=== PATIENT | male | born 1960 | race Caucasian/White ===

== ENCOUNTER 2022-02-13 10:33 | Observation (INO) ==
[2022-02-13] MEDS ORDERED: ONDANSETRON INJ 2 MG/ML 2 ML VIAL IV STA (11:18)
[2022-02-13] MEDS ORDERED: MoRPHine SULFATE 4 MG/ML 1 ML CARP\\VIAL IV STA (11:18)
--- NOTE | 2022-02-13 11:20 | Emergency Department Note ---
Impression & Plan Bradycardia ADMIT ED Provider Note HPI: The patient is a 61-year-old gentleman with history of schizoaffective disorder, presents the emergency department [facility] over concern for chest discomfort. Patient tells me he has now had chest discomfort for about the past 3 days. States it is substernal in nature. Patient was complaining of the symptoms earlier today and EMS was contacted to transport the patient to the ED. He was noted to be bradycardic in the 40s and was given a dose of atropine in the field despite his blood pressure being stable. On my initial assessment the patient is in no acute distress, heart rate is 55, patient is hemodynamically stable otherwise and saturating well on room air, denies any shortness of breath, states he still does have some mild chest discomfort. 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 He is noted to be bradycardic in the field and was given a dose of atropine. Blood pressure is remained stable throughout his stay here in the ED. Patient states he does have some mild chest discomfort therefore was given morphine here in the ED, high-sensitivity troponin levels within normal limits, patient's EKG shows sinus bradycardia with a rate of 46, does not appear to show any evidence of high degree heart block. Patient has remained persistently bradycardic here in the ED mostly in the 40s, he denies any shortness of breath and is saturating well on room air, he is otherwise in no acute distress despite this bradycardia, denies any presyncopal events. Patient is a relatively difficult historian, has a history of schizoaffective disorder, he does tell me that he does not have any history of ischemic heart disease. He appears in no acute distress here in the ED but given his persistent bradycardia without known source (patient denies being on any beta- blockers) I do think it would be prudent to admit the patient for cardiology consultation and trending of troponins. At this time he is in no acute distress and EKG does not show high degree heart block per my interpretation. Patient is in agreement for admission, case was discussed with the on-call hospitalist for [facility], Dr. Rooney, and patient was admitted in stable condition for further care. Diagnosis: 1. Chest pain, acute 2. Sinus Bradycardia Disposition: Admission Toy Price DO Emergency Medicine Past Med/Surg History Medical History (Updated 09/17/21 @ 00:06 by Moses Yuen) COVID-19 Hypothyroid Psychiatric disorder Social History (Updated 09/06/21 @ 10:39 by Vicky Pritchett MD) Smoking Status: Former smoker Tobacco Type: Cigarettes Current Living Situation Comment: Long-term patient at the [facility] Feels Safe at Home: Yes Allergies Allergies Allergy/AdvReac Type Severity Reaction Status Date / Time adhesive tape Allergy Unknown Unverified 09/02/21 15:40 bee venom protein (honey bee) Allergy Unknown Unverified 09/02/21 15:40 chlorpromazine Allergy Unknown Unverified 09/02/21 15:40 [From Thorazine] latex Allergy Unknown Unverified 09/02/21 15:40 propranolol [From Inderal LA] Allergy Unknown Unverified 09/02/21 15:40 Home Meds Home Medications Medication Instructions Recorded Confirmed acetaminophen 325 mg tablet 650 mg PO Q4H PRN 09/02/21 09/02/21 aluminum-mag hydroxide-simethicone 30 ml PO QID PRN 09/02/21 09/02/21 200 mg-200 mg-20 mg/5 mL oral susp ascorbic acid (vitamin C) 1,000 mg 1 g PO DAILY 09/02/21 09/02/21 tablet aspirin 81 mg chewable tablet 81 mg PO DAILY 09/02/21 09/02/21 atorvastatin 10 mg tablet 10 mg PO HS 09/02/21 09/02/21 benzocaine 15 mg-menthol 3.6 mg 2 ambrocio MUCOUS MEMBRANE Q2H PRN 09/02/21 09/02/21 lozenges bisacodyl 5 mg tablet,delayed 10 mg PO DAILY 09/02/21 09/02/21 release cholecalciferol (vitamin D3) 25 25 mcg PO DAILY 09/02/21 09/02/21 mcg (1,000 unit) tablet clonazepam 0.5 mg tablet 0.5 mg PO TID PRN 09/02/21 09/02/21 clonidine HCl 0.1 mg tablet 0.1 mg PO BID 09/02/21 09/02/21 clozapine 100 mg tablet 100 mg PO QAM 09/02/21 09/02/21 clozapine 100 mg tablet 200 mg PO HS 09/02/21 09/02/21 divalproex 500 mg tablet,delayed 1,500 mg PO HS 09/02/21 09/02/21 release docusate sodium 100 mg capsule 200 mg PO DAILY 09/02/21 09/02/21 epinephrine 0.3 mg/0.3 mL 0.3 mg IM UD PRN 09/02/21 09/02/21 injection, auto-injector (EpiPen) famotidine 20 mg tablet 20 mg PO BID PRN 09/02/21 09/02/21 fluticasone propionate 50 1 spray INTRANASAL BID 09/02/21 09/02/21 mcg/actuation nasal spray,suspension guaifenesin 600 mg tablet, 600 mg PO BID 09/02/21 09/02/21 extended release 12 hr (Mucinex) levothyroxine 100 mcg tablet 100 mcg PO DAILY 09/02/21 09/02/21 levothyroxine 25 mcg tablet 25 mcg PO DAILY 09/02/21 09/02/21 loratadine 10 mg tablet 10 mg PO DAILY 09/02/21 09/02/21 multivitamin 1 tab PO DAILY 09/02/21 09/02/21 omega-3 fatty acids 1,000 mg 1,000 mg PO BID 09/02/21 09/02/21 capsule pantoprazole 40 mg tablet,delayed 40 mg PO DAILY 09/02/21 09/02/21 release phenylephrine 0.25 %-pramoxine 1 1 applic [place] TID PRN 09/02/21 09/02/21 %-glycerin-wh.petrolatum rectal cream (Hemorrhoidal Cream) polyethylene glycol 3350 17 17 g PO 3XWK 09/02/21 09/02/21 gram/dose oral powder pseudoephedrine HCl 60 mg tablet 60 mg PO BID 09/02/21 09/02/21 trazodone 150 mg tablet 150 mg PO HS 09/02/21 09/02/21 Results & Data (ED) Vital Signs Vital Signs - 24 hr 02/13/22 10:40 02/13/22 11:27 02/13/22 12:30 Temperature 36.6 C Temperature Source Oral Pulse Rate 46 L 43 L Pulse Rate [Apical] 50 L Pulse Rate from SpO2 Sensor 40 L Respiratory Rate 16 16 18 Respiratory Effort / Characteristics Non-Labored Spontaneous Non-Labored Spontaneous Respiratory Depth Normal Normal Respiratory Pattern Regular Blood Pressure 133/74 112/66 Blood Pressure [Right Arm] 129/71 Blood Pressure Mean 93 81 Blood Pressure Mean [Right Arm] 90 Blood Pressure Position Sitting Blood Pressure Position [Right Arm] Lying Pulse Oximetry 98 98 90 Oxygen Delivery Method Room Air Room Air Sepsis Recent Fever Within 48 Hours No Sepsis New/Unexplained Change in Mental Status N/A Sepsis Action Taken by Nursing No Action Required 02/13/22 13:00 02/13/22 13:31 02/13/22 13:59 Temperature Temperature Source Pulse Rate 50 L Pulse Rate [Apical] 45 L 46 L Pulse Rate from SpO2 Sensor 48 L Respiratory Rate 12 18 16 Respiratory Effort / Characteristics Non-Labored Respiratory Depth Normal Normal Respiratory Pattern Regular Blood Pressure 100/62 Blood Pressure [Right Arm] 100/62 105/60 Blood Pressure Mean 74 Blood Pressure Mean [Right Arm] 74 75 Blood Pressure Position Blood Pressure Position [Right Arm] Lying Pulse Oximetry 92 94 98 Oxygen Delivery Method Room Air Room Air Sepsis Recent Fever Within 48 Hours Sepsis New/Unexplained Change in Mental Status Sepsis Action Taken by Nursing Laboratory Data Result diagrams: 02/13/22 11:44 02/13/22 11:44 Lab Results 02/13/22 02/13/22 Range/Units 11:44 11:44 WBC 6.65 (4.8-10.8) K/uL RBC 4.48 L (4.7-6.1) M/uL Hgb 12.8 L (14.0-18.0) g/dL Hct 38.4 L (42-52) % MCV 85.7 (80-100) fL MCH 28.6 (25-34) pg MCHC 33.3 (32-36) g/dL RDW Std Deviation 40.7 (36.4-46.3) fL RDW Coeff of [place] 13.0 (11.5-14.5) % Plt Count 199 (130-400) K/uL MPV 11.1 H (7.4-10.4) fL Immature Gran % (Auto) 0.5 % Neut % (Auto) 65.1 % Lymph % (Auto) 27.4 % [place] % (Auto) 5.6 % Eos % (Auto) 1.1 % Baso % (Auto) 0.3 % Neut # (Auto) 4.34 (1.4-6.5) K/uL Lymph # (Auto) 1.82 (1.2-3.4) K/uL [place]uming # (Auto) 0.37 (0.11-0.59) K/uL Eos # (Auto) 0.07 (0-0.5) K/uL Baso # (Auto) 0.02 (0-0.2) K/uL Immature Gran # (Auto) 0.03 H (0.00-0.02) K/uL Sodium 140 (136-145) mmol/L Potassium 3.9 (3.5-5.1) mmol/L Chloride 108 H (98-107) mmol/L Carbon Dioxide 25 (21-32) mmol/L Anion Gap 7 (3-11) BUN 17 (6-23) mg/dl Creatinine 0.89 (0.6-1.4) mg/dl Est Cr Clr Drug Dosing 109.5 ml/min Est GFR ( Amer) 105.5 ml/min Est GFR (Non-Af Amer) 91.0 ml/min BUN/Creatinine Ratio 19.1 (10-20) Glucose 114 H (70-99(Fasting)) mg/dl Calcium 9.4 (8.5-10.1) mg/dl Total Bilirubin 0.5 (0.2-1.0) mg/dl AST 23 (13-39) U/L ALT 32 (7-52) U/L Alkaline Phosphatase 67 (34-104) U/L Troponin I High Sens 9.2 (0-20) pg/ml Total Protein 6.6 (6.0-8.3) gm/dl Albumin 3.9 (3.4-5.0) gm/dl Globulin 2.7 (2.5-4.0) gm/dl Albumin/Globulin Ratio 1.4 (0.9-2) Lipase 44 (11-82) U/L Administered Medications Discontinued Medications Morphine Sulfate (Morphine Sulfate 4 Mg/Ml 1 Ml Carp\Vial) 4 mg IV NOW STA Stop: 02/13/22 11:19 Last Admin: 02/13/22 11:34 Dose: 4 mg Documented by: [id number] Ondansetron HCl (Ondansetron Inj 2 Mg/Ml 2 Ml Vial) 4 mg IV NOW STA Stop: 02/13/22 11:19 Last Admin: 02/13/22 11:35 Dose: 4 mg Documented by: [id number] Imaging Data Radiologist's Impression: Chest X-Ray 02/13/22 11:14 XR chest 1V portable CLINICAL HISTORY: Atypical chest pain. COMPARISON STUDY: Chest radiograph September 02, 2021. FINDINGS: Lung volumes are normal. Lungs are clear. There is no pneumothorax or pleural effusion. Cardiac size is normal. Mediastinal contours are normal. There is no evidence for pulmonary edema. Old right fifth rib fracture is incidentally noted. IMPRESSION: No acute cardiopulmonary findings. ACT 112: Negative or not required by law. Electronically signed by: Travis Krause M.D. 02/13/2022 11:41 AM Discharge Plan Visit Data Chief Complaint: Cardiac Assessment Stated Complaint: CHEST PAIN ED Provider: Toy Price Discharge Problem: Bradycardia Forms Stand Alone Forms: [facility] Prescriptions Prescriptions: No Action multivitamin Tablet 1 tab PO DAILY RF: 0 ascorbic acid (vitamin C) 1,000 mg Tablet 1 g PO DAILY RF: 0 clonidine HCl 0.1 mg Tablet 0.1 mg PO BID RF: 0 acetaminophen 325 mg Tablet 650 mg PO Q4H PRN (Reason: Pain) RF: 0 omega-3 fatty acids [Fish Oil Concentrate] 1,000 mg Capsule 1,000 mg PO BID RF: 0 atorvastatin 10 mg Tablet 10 mg PO HS RF: 0 clozapine 100 mg Tablet 200 mg PO HS RF: 0 clozapine 100 mg Tablet 100 mg PO QAM RF: 0 clonazepam 0.5 mg Tablet 0.5 mg PO TID PRN (Reason: Anxiety) RF: 0 divalproex 500 mg Tablet,Delayed Release (Dr/Ec) 1,500 mg PO HS RF: 0 levothyroxine 25 mcg Tablet 25 mcg PO DAILY RF: 0 levothyroxine 100 mcg Tablet 100 mcg PO DAILY RF: 0 famotidine 20 mg Tablet 20 mg PO BID PRN (Reason: Gi Upset) RF: 0 pantoprazole 40 mg Tablet,Delayed Release (Dr/Ec) 40 mg PO DAILY RF: 0 trazodone 150 mg Tablet 150 mg PO HS RF: 0 docusate sodium 100 mg Capsule 200 mg PO DAILY RF: 0 aspirin 81 mg Tablet,Chewable 81 mg PO DAILY RF: 0 bisacodyl 5 mg Tablet,Delayed Release (Dr/Ec) 10 mg PO DAILY RF: 0 alum-mag hydroxide-simeth [Antacid Plus] 200-200-20 mg/5 mL Suspension 30 ml PO QID PRN (Reason: Gastric Reflux) RF: 0 epinephrine [EpiPen] 0.3 mg/0.3 mL Auto-Injector 0.3 mg IM UD PRN (Reason: Allergic Reaction) RF: 0 polyethylene glycol 3350 17 gram/dose Powder 17 g PO 3XWK RF: 0 fluticasone propionate 50 mcg/actuation [place],Suspension 1 spray INTRANASAL BID RF: 0 pseudoephedrine HCl [Sudafed] 60 mg Tablet 60 mg PO BID RF: 0 loratadine 10 mg Tablet 10 mg PO DAILY RF: 0 Hemorrhoidal Cream 0.25-1 % Cream 1 applic [place] TID PRN (Reason: Hemorrhoids) RF: 0 cholecalciferol (vitamin D3) 25 mcg (1,000 unit) Tablet 25 mcg PO DAILY RF: 0 benzocaine-menthol 15-3.6 mg Lozenge 2 ambrocio mucous membrane Q2H PRN (Reason: Sore Throat) RF: 0 guaifenesin [Mucinex] 600 mg Tablet Extended Release 12hr 600 mg PO BID RF: 0 Referrals Referrals: [facility] [Primary Care Provider] -
--- NOTE | 2022-02-13 11:42 | XRay Report ---
XR chest 1V portable CLINICAL HISTORY: Atypical chest pain. COMPARISON STUDY: Chest radiograph September 02, 2021. FINDINGS: Lung volumes are normal. Lungs are clear. There is no pneumothorax or pleural effusion. Car diac size is normal. Mediastinal contours are normal. There is no evidence for pulmonary edema. Old r ight fifth rib fracture is incidentally noted. IMPRESSION: No acute cardiopulmonary findings. ACT 112: Negative or not required by law. Electronically signed by: Travis Krause M.D. 02/13/2022 11:41 AM
[2022-02-13 12:03] LABS: Basophils # (auto) 0.02 K/uL (0-0.2); Basophils % (auto) 0.3 %; Eosinophils # (auto) 0.07 K/uL (0-0.5); Eosinophils % (auto) 1.1 %; Hematocrit (blood only) 38.4 % (42-52); Hemoglobin 12.8 g/dL (14.0-18.0); Immature Granulocytes # (auto) 0.03 K/uL (0.00-0.02); Immature Granulocytes % (auto) 0.5 %; Lymphocytes # (auto) 1.82 K/uL (1.2-3.4); Lymphocytes % (auto) 27.4 %; Mean Corpuscular Hemoglobin 28.6 pg (25-34); Mean Corpuscular Hgb Conc 33.3 g/dL (32-36); Mean Corpuscular Volume 85.7 fL (80-100); Mean Platelet Volume 11.1 fL (7.4-10.4); Monocytes # (auto) 0.37 K/uL (0.11-0.59); Monocytes % (auto) 5.6 %; Neutrophils # (auto) 4.34 K/uL (1.4-6.5); Neutrophils % (auto) 65.1 %; Platelet Count 199 K/uL (130-400); RDW Standard Deviation 40.7 fL (36.4-46.3); Red Blood Count 4.48 M/uL (4.7-6.1); White Blood Count 6.65 K/uL (4.8-10.8)
[2022-02-13 12:27] LABS: Albumin Globulin Ratio 1.4 (0.9-2); Albumin Level 3.9 gm/dl (3.4-5.0); BUN Creatinine Ratio 19.1 (10-20); Bilirubin,Total 0.5 mg/dl (0.2-1.0); Calcium 9.4 mg/dl (8.5-10.1); Creatinine Clr Calc Pharmacy 109.5 ml/min; Est GFR (African American) 105.5 ml/min; Globulin 2.7 gm/dl (2.5-4.0); Potassium 3.9 mmol/L (3.5-5.1); Total Protein 6.6 gm/dl (6.0-8.3); Troponin I High Sensitivity 9.2 pg/ml (0-20)
--- NOTE | 2022-02-13 13:37 | History & Physical Report ---
Date of Service February 13, 2022 Assessment & Plan (1) Bradycardia: Plan: - Patient has not been here frequently so do not have ample past medical records, but appears new for him given vital signs on last admission in August. Patient also states he has never been told he has a low heart rate. He denies being on any beta-blockers or antiarrhythmics. Per my research, none of his psychiatric medications are known to cause bradycardia. Potassium within normal limits at 3.9. Not hypoxic. History of ischemic heart disease, no evidence for acute MT. - Will check TSH and Lyme. - Atropine ordered as needed for sustained HR < 40 - Consult cardiology for further recommendations. (2) Chest pain: Plan: - Initial hsTrop 9.2, EKG shows sinus bradycardia and chronic LBBB without any specific ST segment or T wave changes, which is reassuring given the patient's history of chest pain going on for 3 days now. We will trend troponin while here and admit to telemetry unit. - Currently chest pain-free after receiving morphine and Zofran. - Consult cardiology as above. - ? whether this could be heartburn as he did mention it goes from stomach up to throat. As stated, patient is a difficult historian given his speech difficulties, so it is difficult to obtain much detail about the symptoms. (3) Psychiatric disorder: Plan: - Chronic stable, patient stating repeatedly this is the best he's felt "in years". - Continue on scheduled medications: - Keppra 250mg 0900 and 1300, 500mg at HS - Risperidone 2mg HS - Venlafaxine ER 150mg AM, 75 mg at 1300 - Trazodone 150 mg HS. - Klonopin 0.5 mg TID as needed for anxiety. (4) Hypothyroid: Plan: - Continue levothyroxine 125 mcg daily. - Checking TSH with reflex T4 given bradycardia. (5) Hyperlipidemia: Plan: - Continue atorvastatin 10 mg daily. (6) GERD (gastroesophageal reflux disease): Plan: - Continue Protonix 40 mg daily. - Has Pepcid ordered 20 mg BID as needed--will order this schedule. - Continue antacid prn. Plan: - Admit to PCU. - SCDs for DVT PPx - Full code. History of Present Illness Chief Complaint: chest pain for 3 days Primary Care Provider: Joya Osman Nando Restrepo is a 61 y/o male with PMH significant for schizoaffective disorder, hyperlipidemia, GERD, and hypothyroidism who presents today from inpatient psychiatric facility for chest pain. At baseline, patient has some difficulty with speech dysarthria/dystonia so history is collected from patient, as well as ED provider and facility notes. Patient first experienced the chest pain on Friday, 02/10 around 9 AM while he was sitting in one of his group therapies. Chest pain has been on and off over the past 3 days since then feels like a pressure on his chest but does not radiate elsewhere, although he does mention that one time it seemed to go from his stomach to his throat. He states at its worst this morning it was an 8/10, but now is down to a 3-4/10 after receiving Zofran and morphine. He has not experienced chest pain like this before. The pain has come on at rest and activity, patient woke up with it this morning. He does not believe it is any better or worse with positions, does not begin immediately after meal. He thinks he may have been nauseous with it few times and also reports feeling lightheaded at points, but cannot really elaborate much further. He does not have a history of heart disease. In ED, he is bradycardic with HR 40-50s, borderline soft BPs. Labs largely unremarkable, initial hs Trop 9.2. Hgb 12.8, glucose 114. CXR unremarkable. Allergies Allergy/AdvReac Type Severity Reaction Status Date / Time oxazepam Allergy Unknown Unknown Unverified 02/13/22 14:35 adhesive tape Allergy Unknown Unverified 09/02/21 15:40 bee venom protein (honey bee) Allergy Unknown Unverified 02/13/22 14:35 chlorpromazine Allergy Unknown Unverified 02/13/22 14:35 [From Thorazine] latex Allergy Unknown Unverified 02/13/22 14:35 propranolol [From Inderal LA] Allergy Unknown Unverified 02/13/22 14:35 Home Medications Medication Instructions Recorded Confirmed Type acetaminophen 325 mg tablet 650 mg PO Q4H PRN 09/02/21 02/13/22 History aluminum-mag hydroxide-simethicone 30 ml PO QID PRN 09/02/21 02/13/22 History 200 mg-200 mg-20 mg/5 mL oral susp ascorbic acid (vitamin C) 1,000 mg 1 g PO QAM 09/02/21 02/13/22 History tablet aspirin 81 mg chewable tablet 81 mg PO QAM 09/02/21 02/13/22 History atorvastatin 10 mg tablet 10 mg PO HS 09/02/21 02/13/22 History benzocaine 15 mg-menthol 3.6 mg 2 ambrocio MUCOUS MEMBRANE Q2H PRN 09/02/21 02/13/22 History lozenges cholecalciferol (vitamin D3) 25 25 mcg PO QAM 09/02/21 02/13/22 History mcg (1,000 unit) tablet clonazepam 0.5 mg tablet 0.5 mg PO TID PRN 09/02/21 02/13/22 History docusate sodium 100 mg capsule 200 mg PO BID 09/02/21 02/13/22 History epinephrine 0.3 mg/0.3 mL 0.3 mg IM UD PRN 09/02/21 02/13/22 History injection, auto-injector (EpiPen) fluticasone propionate 50 1 spray INTRANASAL BID 09/02/21 02/13/22 History mcg/actuation nasal spray,suspension guaifenesin 600 mg tablet, 600 mg PO BID 09/02/21 02/13/22 History extended release 12 hr (Mucinex) levothyroxine 100 mcg tablet 100 mcg PO DAILY@0700 09/02/21 02/13/22 History levothyroxine 25 mcg tablet 25 mcg PO DAILY@0700 09/02/21 02/13/22 History multivitamin 1 tab PO QAM 09/02/21 02/13/22 History omega-3 fatty acids 1,000 mg 1,000 mg PO BID 09/02/21 02/13/22 History capsule pantoprazole 40 mg tablet,delayed 40 mg PO QAM 09/02/21 02/13/22 History release phenylephrine 0.25 %-pramoxine 1 1 applic [place] TID PRN 09/02/21 02/13/22 History %-glycerin-wh.petrolatum rectal cream (Hemorrhoidal Cream) polyethylene glycol 3350 17 17 g PO 3XWK 09/02/21 02/13/22 History gram/dose oral powder trazodone 150 mg tablet 150 mg PO HS 09/02/21 02/13/22 History levetiracetam 250 mg tablet 250 mg PO BID 02/13/22 02/13/22 History levetiracetam 500 mg tablet 500 mg PO HS 02/13/22 02/13/22 History montelukast 10 mg tablet 10 mg PO QAM 02/13/22 02/13/22 History (Singulair) risperidone 2 mg tablet 2 mg PO HS 02/13/22 02/13/22 History sennosides 8.6 mg tablet (senna) 8.6 mg PO HS 02/13/22 02/13/22 History venlafaxine 150 mg 150 mg PO QAM 02/13/22 02/13/22 History capsule,extended release 24 hr venlafaxine 75 mg capsule,extended 75 mg PO DAILY@1300 02/13/22 02/13/22 History release 24 hr Past Med/Surg History Medical History (Updated 02/13/22 @ 15:03 by Clarissa Will PA-C) COVID-19 GERD (gastroesophageal reflux disease) Hyperlipidemia Hypothyroid Psychiatric disorder Social History Smoking Status: Former smoker Tobacco Type: Cigarettes Current Living Situation Comment: Long-term patient at the [facility] Feels Safe at Home: Yes Review of Systems Review of Systems: Other (Patient has baseline speech dysarthria/dystonia) Physical Exam Physical Exam: General: awake, alert, no apparent distress Head: Normocephalic, atraumatic ENT: PERRL, EOMI, no pharyngeal exudate, mucous membranes moist Chest: Clear to auscultation, on room air, no adventitious breath sounds Cardiac: braycardiac, regular rhythm, no murmur, no JVD, normal peripheral pulses, good capillary refill Abdominal: NABS x 4 quadrants, soft, nontender to palpation, no rebound, guarding or tenderness Extremities: Normal inspection, no peripheral edema or erythema, calfs nontender to palpation Psych: Normal mood and affect Neuro: AAO x 3, strength intact bilaterally and rated 5/5, no motor deficits, speech is clear, no peripheral sensory deficits Skin: no rash or erythema Results & Data Results & Data ([facility]) Vital Signs (Past 12 Hours) Vital Signs Temp Pulse Pulse Resp BP BP Pulse Ox 02/13/22 13:31 45 L 18 100/62 94 02/13/22 13:00 50 L 12 100/62 92 02/13/22 12:30 43 L 18 112/66 90 02/13/22 11:27 50 L 16 129/71 98 02/13/22 10:40 36.6 C 46 L 16 133/74 98 Laboratory Results Abnormal lab results 02/13/22 02/13/22 Range/Units 11:44 11:44 RBC 4.48 L (4.7-6.1) M/uL Hgb 12.8 L (14.0-18.0) g/dL Hct 38.4 L (42-52) % MPV 11.1 H (7.4-10.4) fL Immature Gran # (Auto) 0.03 H (0.00-0.02) K/uL Chloride 108 H (98-107) mmol/L Glucose 114 H (70-99(Fasting)) mg/dl Diagnostic Findings Chest X-Ray 02/13/22 11:14 XR chest 1V portable CLINICAL HISTORY: Atypical chest pain. COMPARISON STUDY: Chest radiograph September 02, 2021. FINDINGS: Lung volumes are normal. Lungs are clear. There is no pneumothorax or pleural effusion. Cardiac size is normal. Mediastinal contours are normal. There is no evidence for pulmonary edema. Old right fifth rib fracture is incidentally noted. IMPRESSION: No acute cardiopulmonary findings. ACT 112: Negative or not required by law. Electronically signed by: Travis Krause M.D. 02/13/2022 11:41 AM ECG Additional Comments: Sinus bradycardia Left bundle branch block Abnormal ECG When compared with ECG of 02-SEP-2021 14:38, Premature supraventricular complexes are no longer Present Vent. rate has decreased BY 28 BPM T wave amplitude has decreased in Anterior leads T wave inversion no longer evident in Lateral leads QT has shortened. Code Status & VTE Plan Code Status Full Code. Supervising Physician Co-Signing Physician Notes Patient seen and examined, chart reviewed, case discussed with Clarissa Cuellar and I agree with the assessment and plan as above except as otherwise noted above. Patient is a 61-year-old male with a past medical history of hyperlipidemia, hypothyroidism, COVID, and schitzoaffective disorder stable on venlafaxine/risperidone/trazodone/Keppra who presents with suspicion for symptomatic bradycardia. At bedside assessment lungs are clear, patient is in no acute distress. Blood pressure is normal. Remains bradycardic in the 40s. No change in chest discomfort, reports some feeling of reflux which improved on arrival to ER. QTc 406.QRS 166, left bundle, P wave does proceed complex/not consistent with ventricular escape. Patient is not on beta-blockers prior to admission. Lyme serology is negative, TSH is within normal limits. Did receive atropine in route to hospital for sustained heart rate with symptoms below 40. Asymptomatic with heart rate improved in the 40s on admission. Patient did have some chest discomfort which resolved by time of bedside assessment. High-sensitivity troponinAnd repeat both less than 20, no ST changes on EKG. Given 3 days of chest pain unlikely that this represents ACS. Cardiology is consulted for pacer evaluation for symptomatic bradycardia. PG Care Time/CCT Total # of Minutes Spent Total Time Spent with Patient: Total time spent is greater than 50% in coordination of care (as documented) at patient's floor/unit and/or counseling patient: Coding Level of Care Code 27556 Initial Inpt Care Lvl 2 Diagnoses Psychiatric disorder F99 Hypothyroid E03.9 Chest pain R07.9 Bradycardia R00.1 Hyperlipidemia E78.5 GERD (gastroesophageal reflux disease) K21.9
[2022-02-13 15:54] LABS: Lyme Ab IgG w/WB Rflx Negative (Negative); Lyme Ab IgM w/WB Rflx Negative (Negative)
[2022-02-13] MEDS ORDERED: ONDANSETRON INJ 2 MG/ML 2 ML VIAL IV PRN (16:55)
[2022-02-13] MEDS ORDERED: COUGH DROP (SUGAR FREE) LOZ 24 LOZ/1 BOX BUCCAL PRN (16:55)
[2022-02-13] MEDS ORDERED: ATROPINE SULFATE 0.1 MG/ML SYRINGE INJ PRN (16:55)
[2022-02-13] MEDS ORDERED: ALUMINUM/MAGNESIUM SUSP 30 ML UDC PO PRN (19:50)
[2022-02-13] MEDS ORDERED: POLYETHYLENE (MIRALAX) 17 GM PACK PO SCH (20:00)
[2022-02-13] MEDS: FAMOTIDINE 20 MG TAB PO SCH (21:12)
[2022-02-13] MEDS: traZODone HCL 50 MG TAB PO SCH (21:12)
[2022-02-13] MEDS: levETIRAcetam 500 MG TAB PO SCH (21:12)
[2022-02-13] MEDS: risperiDONE 2 MG TABLET PO SCH (21:12)
[2022-02-13] MEDS: guaiFENesin 600 MG TABCR PO SCH (21:12)
[2022-02-13] MEDS: ATORVASTATIN 10 MG TAB PO SCH (21:12)
[2022-02-14 06:15] LABS: Basophils # (auto) 0.01 K/uL (0-0.2); Basophils % (auto) 0.1 %; Eosinophils # (auto) 0.09 K/uL (0-0.5); Eosinophils % (auto) 1.2 %; Hemoglobin 13.5 g/dL (14.0-18.0); Immature Granulocytes # (auto) 0.03 K/uL (0.00-0.02); Immature Granulocytes % (auto) 0.4 %; Lymphocytes # (auto) 1.38 K/uL (1.2-3.4); Mean Corpuscular Hemoglobin 29.7 pg (25-34); Mean Corpuscular Hgb Conc 33.8 g/dL (32-36); Mean Corpuscular Volume 87.9 fL (80-100); Mean Platelet Volume 11.1 fL (7.4-10.4); Monocytes # (auto) 0.66 K/uL (0.11-0.59); Monocytes % (auto) 8.6 %; Neutrophils # (auto) 5.48 K/uL (1.4-6.5); Neutrophils % (auto) 71.7 %; Platelet Count 189 K/uL (130-400); RDW Coefficient of Variation 13.2 % (11.5-14.5); RDW Standard Deviation 42.4 fL (36.4-46.3); Red Blood Count 4.55 M/uL (4.7-6.1); White Blood Count 7.65 K/uL (4.8-10.8)
[2022-02-14 06:33] LABS: Creatinine Clr Calc Pharmacy 95.2 ml/min; Est GFR (African American) 92.4 ml/min; Est GFR (Non-African American) 79.7 ml/min; Potassium 4.2 mmol/L (3.5-5.1)
[2022-02-14] MEDS ORDERED: LEVOTHYROXINE SODIUM 100 MCG TABLET PO SCH (07:00)
[2022-02-14] MEDS ORDERED: LEVOTHYROXINE SODIUM 25 MCG TABLET PO SCH (07:00)
[2022-02-14] MEDS: levETIRAcetam 250 MG TAB PO SCH ×2 (08:09→14:40)
[2022-02-14] MEDS: CHOLECALCIFEROL 1,000 UNITS 25 MCG TAB PO SCH (08:09)
[2022-02-14] MEDS: DOCUSATE SODIUM 100 MG CAP PO SCH (08:09)
[2022-02-14] MEDS: PANTOprazole 40 MG TAB PO SCH (08:09)
[2022-02-14] MEDS: guaiFENesin 600 MG TABCR PO SCH ×2 (08:10→20:25)
[2022-02-14] MEDS: VENLAFAXINE HCL XR 150 MG CAPXR PO SCH (08:10)
[2022-02-14] MEDS: ASCORBIC ACID 500 MG TAB PO SCH (08:10)
[2022-02-14] MEDS: FAMOTIDINE 20 MG TAB PO SCH ×2 (08:10→20:25)
[2022-02-14] MEDS: ASPIRIN 81 MG ECTAB PO SCH (08:10)
[2022-02-14] MEDS: ACETAMINOPHEN 325 MG TAB PO PRN ×2 (08:16→22:03)
--- NOTE | 2022-02-14 12:40 | Hospitalist Progress Note ---
Date of Service February 14, 2022 Assessment & Plan (1) Bradycardia: Plan: No bradycardia appreciated patient's last visit in August, per patient no history of bradycardia No history of beta-melia or antiarrhythmic treatment Troponin negative, no acute ST segment changes TSH normal, Lyme serology negative Initially patient had received atropine for heart rate sustained under 40 with lightheadedness and dizziness in route to ER, patient is able to walk today with appropriate rise in heart rate to the 70s. No heart block overnight, no pauses greater than 2.5 seconds overnight. Patient does endorse some lightheadedness/dizziness when standing Orthostatic vitals: Blood pressure lying 126/70; sitting 134/72; standing 119/64 Pulse lying 51, sitting 61, standing 60 Does not show reduction of 20 systolic/10 diastolic between positions performed at 1-2 minute interval Echo with normal LV SF 60-65%, no regional wall motion abnormalities. Mild mitral regurg moderate concentric LVH Pending callback from the [facility] for med review, left message with nursing staff By report and discussed with family some medication changes have been made recently, but they are not sure which these were.? Lightheadedness and dizziness 2/2 medications/sedation. (2) Chest pain: Plan: - Initial hsTrop 9.2, EKG shows sinus bradycardia and chronic LBBB without any specific ST segment or T wave changes, patient did have 3 days of symptoms -Pain-free with morphine/Zofran after admission, some reports of chest pain in the morning which was reproducible on palpation but which was improved/resolved at rest at time of bedside assessment -Noncardiac, suspect MSK Repeat at bedtime troponin 8.3. Not consistent with ACS on mom's happy birthday message was yellow happy birthday (even though I did all the work (3) Psychiatric disorder: Plan: - Schizoaffective disorder per patient, patient reports he is doing well and is stable on his medications below - Keppra 250mg 0900 and 1300, 500mg at HS - Risperidone 2mg HS - Venlafaxine ER 150mg AM, 75 mg at 1300 - Trazodone 150 mg HS. - Klonopin 0.5 mg TID as needed for anxiety. Patient does report he was previously switched from clozapine.? Agranulocytosis versus dystonic reaction, no dystonia appreciated on exam. Per sister has had multiple medication changes but recently doing well, thinks clozapine change was for feeling 'snappy' but 'so much psychiatric stuff it was hard to tell but he is doing really well on his current medications after being in and out of places for most of my life.' (4) Hypothyroid: Plan: - Continue levothyroxine 125 mcg daily. -TSH normal (5) Hyperlipidemia: Plan: - Continue atorvastatin 10 mg daily. (6) GERD (gastroesophageal reflux disease): Plan: - Continue Protonix 40 mg daily. - Pepcid 20 twice daily Plan: - Admit to PCU. - SCDs for DVT PPx - Full code. Admission and Anticipated Discharge Date Admission Date: February 13, 2022 Subjective Seen at the bedside this morning. He reports he did have a recurrence of chest pain which has improved by time of bedside assessment. Chest pain is in his mid sternum/left chest and is worsened on palpation. Denies shortness of breath, difficulty breathing, lightheadedness, dizziness, sweats this morning. Does endorse lightheadedness upon standing, has not ambulated at time of initial morning bedside visit. Later morning is ambulating with nursing staff, heart rate rises to 70s appropriately and patient tolerating well without lightheadedness. Troponin remains negative. Lyme negative. Review of Systems Review of Systems: All systems reviewed & are unremarkable except as noted in Subjective Physical Exam Physical Exam: General: A&Ox3. Not responding to internal stimuli. Answers questions appropriately, but trails off intermittently. Process linear to occasionally tangential. HEENT: Atraumatic, normocephalic. Vision and hearing grossly intact Pulm: CTAB A&P. -wheezes, -rales, -rhonchi. Symmetrical chest rise. No increase in work of breathing. No respiratory distress. Cardiac: Bradycardic, -mrg. Radial pulses intact and symmetrical. Abdominal: Nontender, nondistended, soft. BS present. Results & Data Results & Data ([facility]) Vital Signs (Past 12 Hours) Vital Signs Temp Pulse Resp BP BP Pulse Ox 02/14/22 10:55 36.4 C L 51 L 20 126/70 96 02/14/22 10:06 134/75 02/14/22 07:41 36.6 C 52 L 19 117/72 97 02/14/22 03:19 36.5 C 47 L 18 100/61 92 PG Care Time/CCT Total # of Minutes Spent Total Time Spent with Patient: Total time spent is greater than 50% in coordination of care (as documented) at patient's floor/unit and/or counseling patient: Coding Level of Care Code 41341 Subseq Hosp Care Lvl 2 Diagnoses Bradycardia R00.1 Chest pain R07.9 Psychiatric disorder F99 Hypothyroid E03.9 Hyperlipidemia E78.5 GERD (gastroesophageal reflux disease) K21.9
[2022-02-14] MEDS: VENLAFAXINE HCL XR 75 MG CAPXR PO SCH (14:40)
--- NOTE | 2022-02-14 16:42 | Cardiology Consultation ---
Date of Consultation February 14, 2022 Assessment & Plan (1) Atypical chest pain: (2) Bradycardia: (3) Dizziness: ASSESSMENT/PLAN: 1. Atypical chest pain: Recommend echo, which was ordered this morning and currently pending. Recommend trending troponin level until peak. Troponin has not been done since yesterday and will be ordered at this time. Given reproducible nature/tenderness of chest, symptoms do not appear to be ischemic thus far but awaiting further objective data such as troponin and echo. No urgent indication for catheterization at this time. 2. LBBB: Chronic. 3. Bradycardia: There was concern for symptomatic bradycardia. Asked nursing staff to assist him in walking in the hallway. Upon standing, his heart rate increased quickly to the 60s and then consistently in the 70s while walking, up to 75 bpm during his slow walk in the hallway. He did mention dizziness. Orthostatic vitals were requested. He appears to have appropriate chronotropic response to mild exertion. No indication for pacemaker at this time. Avoid medications that can lower heart rate. 4. Dizziness: Etiology uncertain. Consider medication as possible etiology. Check orthostatic vitals. Appears to have reasonable chronotropic response and therefore bradycardia does not appear to be the likely culprit given reproduction of symptoms despite heart rate improving by > 20 bpm with minimal exertion. 5. Disposition: Findings and patient care discussed with Dr. [facility], as well as nursing staff. Awaiting echo. I will be away from the hospital for the next several days. Please contact on-call spinneret cleaner for questions or concerns. Dr. Mccormick will be covering tomorrow. Thank you for allowing me to participate in the care of your patient. Please call for any other questions or concerns. Sincerely, Johnnie Perez M.D. History of Present Illness Reason for Consultation: "Symptomatic bradycardia Requesting Physician: Clarissa Will Attending Physician: Navdeep Iglesias MD History of Present Illness Mr. Restrpeo is a pleasant 61-year-old gentleman with a history significant for schizoaffective disorder, dyslipidemia, GERD, and hypothyroidism. He was brought to the emergency department for chest pain. He has difficulty with speech and obtaining a history is difficult. He describes left-sided chest discomfort that can last for 4-5 minutes. He noted chest discomfort 3-4 days ago at approximately 9:00 a.m. while seated. It has been intermittent since then without radiation. There is no other associated symptom such as shortness of breath or diaphoresis. He admits that during our conversation this morning, he had ongoing chest discomfort and had reported chest discomfort to nursing staff as well. He has had ECGs done during episodes of chest discomfort but has baseline left bundle branch block which was also noted on 09/02/2021 ECG. It is not clear if the chest discomfort is exacerbated by exertion, although much of what he discussed today in regards to chest discomfort was noted to be occurring at rest. He believed chest discomfort may be related to anxiety. Despite the chest discomfort being reported as intermittent, he had on presentation for quite some time and has had it at least most of the morning today. High sensitivity troponin remained negative yesterday times to however he has not had a repeat today. The other concern from a cardiology perspective was bradycardia. He was found to have heart rates in the 40s at his living facility and a blood pressure of 102/56. 911 was called. EMS reportedly administered atropine due to bradycardia. While here, he has remained in sinus rhythm with sinus bradycardia with heart rates in the 40s to 50s for the most part. While sitting in bed, he was asymptomatic in this regard. He does report lightheadedness or dizziness but it was difficult to know the circumstances given his speech difficulties. He denies bleeding. He walks daily at his living facility. Review of systems: As above and otherwise unobtainable/unremarkable. Family history: No known premature CAD. Father had diabetes. Social history: He quit smoking approximately 18 years ago. Has used drugs in the past but none currently. He no longer consumes alcohol. He has not been . No children. He lives at the [facility]. He was unaccompanied. Allergies Allergy/AdvReac Type Severity Reaction Status Date / Time oxazepam Allergy Unknown Unknown Unverified 02/13/22 14:35 adhesive tape Allergy Unknown Unverified 09/02/21 15:40 bee venom protein (honey bee) Allergy Unknown Unverified 02/13/22 14:35 chlorpromazine Allergy Unknown Unverified 02/13/22 14:35 [From Thorazine] latex Allergy Unknown Unverified 02/13/22 14:35 propranolol [From Inderal LA] Allergy Unknown Unverified 02/13/22 14:35 Home Medications Medication Instructions Recorded Confirmed Type acetaminophen 325 mg tablet 650 mg PO Q4H PRN 09/02/21 02/13/22 History aluminum-mag hydroxide-simethicone 30 ml PO QID PRN 09/02/21 02/13/22 History 200 mg-200 mg-20 mg/5 mL oral susp ascorbic acid (vitamin C) 1,000 mg 1 g PO QAM 09/02/21 02/13/22 History tablet aspirin 81 mg chewable tablet 81 mg PO QAM 09/02/21 02/13/22 History atorvastatin 10 mg tablet 10 mg PO HS 09/02/21 02/13/22 History benzocaine 15 mg-menthol 3.6 mg 2 marcelo MUCOUS MEMBRANE Q2H PRN 09/02/21 02/13/22 History lozenges cholecalciferol (vitamin D3) 25 25 mcg PO QAM 09/02/21 02/13/22 History mcg (1,000 unit) tablet clonazepam 0.5 mg tablet 0.5 mg PO TID PRN 09/02/21 02/13/22 History docusate sodium 100 mg capsule 200 mg PO BID 09/02/21 02/13/22 History epinephrine 0.3 mg/0.3 mL 0.3 mg IM UD PRN 09/02/21 02/13/22 History injection, auto-injector (EpiPen) fluticasone propionate 50 1 spray INTRANASAL BID 09/02/21 02/13/22 History mcg/actuation nasal spray,suspension guaifenesin 600 mg tablet, 600 mg PO BID 09/02/21 02/13/22 History extended release 12 hr (Mucinex) levothyroxine 100 mcg tablet 100 mcg PO DAILY@0700 09/02/21 02/13/22 History levothyroxine 25 mcg tablet 25 mcg PO DAILY@0700 /05/1602/13/22 History multivitamin 1 tab PO QAM 09/02/21 02/13/22 History omega-3 fatty acids 1,000 mg 1,000 mg PO BID 09/02/21 02/13/22 History capsule pantoprazole 40 mg tablet,delayed 40 mg PO QAM 09/02/21 02/13/22 History release phenylephrine 0.25 %-pramoxine 1 1 applic DC TID PRN 09/02/21 02/13/22 History %-glycerin-wh.petrolatum rectal cream (Hemorrhoidal Cream) polyethylene glycol 3350 17 17 g PO 3XWK 09/02/21 02/13/22 History gram/dose oral powder trazodone 150 mg tablet 150 mg PO HS 09/02/21 02/13/22 History levetiracetam 250 mg tablet 250 mg PO BID 02/13/22 02/13/22 History levetiracetam 500 mg tablet 500 mg PO HS 02/13/22 02/13/22 History montelukast 10 mg tablet 10 mg PO QAM 02/13/22 02/13/22 History (Singulair) risperidone 2 mg tablet 2 mg PO HS 02/13/22 02/13/22 History sennosides 8.6 mg tablet (senna) 8.6 mg PO HS 02/13/22 02/13/22 History venlafaxine 150 mg 150 mg PO QAM 02/13/22 02/13/22 History capsule,extended release 24 hr venlafaxine 75 mg capsule,extended 75 mg PO DAILY@1300 02/13/22 02/13/22 History release 24 hr Patient History Medical History (Updated 02/14/22 @ 16:47 by Jimi Perez MD) COVID-19 GERD (gastroesophageal reflux disease) Hyperlipidemia Hypothyroid Psychiatric disorder Schizo affective schizophrenia Social History Smoking Status: Former smoker Tobacco Type: Cigarettes Hx Alcohol Use: No Hx Substance Use: No Preferred Language: Hungarian Communication Ability: Effective Coal Digger Required: No Beliefs That Will Affect Care: None Current Living Situation: Other Current Living Situation Comment: lives in [facility] How many Children do You have: 0 Other Information That Helps Us Care for You: No Feels Safe at Home: Yes Safety Concerns: Feels Safe At This Time Assistive Devices: None Assistive Devices Comment: partial lower Physical Exam Physical Exam: Gen.: No acute distress. Alert. HEENT: Anicteric sclera. Neck: No JVD. No bruits. Normal carotid upstrokes bilaterally. Cardiac: PMI was nonpalpable. No ventricular heave. Regular and bradycardic near 50 bpm. Normal S1-S2. No murmurs, rubs, or gallops. Pulmonary: Clear to auscultation bilaterally without wheezes, rales, or rhonchi. Abdomen: Soft, nontender, nondistended, with normoactive bowel sounds. No bruits noted. Extremities: 2+ radial pulses bilaterally. 2+ posterior tibialis pulses bilaterally. No edema or cyanosis. Chest: Tender to palpation, reproducing his chest discomfort described in HPI. No palpable mass. Results & Data ([facility]) Vital Signs (Past 12 Hours) Vital Signs Temp Pulse Resp BP BP Pulse Ox 02/14/22 15:57 36.4 C L 46 L 20 152/87 H 95 02/14/22 10:55 36.4 C L 51 L 20 126/70 96 02/14/22 10:06 134/75 02/14/22 07:41 36.6 C 52 L 19 117/72 97 Laboratory Results Laboratory Results - last 24 hr 02/14/22 02/14/22 02/14/22 05:34 05:34 05:34 WBC 7.65 RBC 4.55 L Hgb 13.5 L Hct 40.0 L MCV 87.9 MCH 29.7 MCHC 33.8 RDW Std Deviation 42.4 RDW Coeff of Sabra 13.2 Plt Count 189 MPV 11.1 H Immature Gran % (Auto) 0.4 Neut % (Auto) 71.7 Lymph % (Auto) 18.0 Mckinley % (Auto) 8.6 Eos % (Auto) 1.2 Baso % (Auto) 0.1 Neut # (Auto) 5.48 Lymph # (Auto) 1.38 Mckinley # (Auto) 0.66 H Eos # (Auto) 0.09 Baso # (Auto) 0.01 Immature Gran # (Auto) 0.03 H Sodium 138 Potassium 4.2 Chloride 106 Carbon Dioxide 27 Anion Gap 5 BUN 17 Creatinine 1.00 Est Cr Clr Drug Dosing 95.2 Est GFR ( Amer) 92.4 Est GFR (Non-Af Amer) 79.7 BUN/Creatinine Ratio 17.0 Glucose 118 H Calcium 9.0 Hepatitis C Ab (EIA) Pending Hep C Ab Signal/Cutoff Pending Diagnostic Findings Telemetry personally reviewed: Sinus bradycardia in the 40s to 50s. ECGs personally read as noted above in HPI. Chest x-ray 02/13/2022: No acute cardiopulmonary findings per Radiology. Medications Administered Current Inpatient Medications Acetaminophen (Acetaminophen 325 Mg Tab) 650 mg PO Q4H PRN PRN Reason: Pain Stop: 03/15/22 16:54 Last Admin: 02/14/22 08:16 Dose: 650 mg Documented by: Al Hydrox/Mg Hydrox/Simethicone (Aluminum/Magnesium Susp 30 Ml Udc) 30 ml PO QID PRN PRN Reason: Gastric Reflux Stop: 03/15/22 19:49 Ascorbic Acid (Ascorbic Acid 500 Mg Tab) 1,000 mg PO DAILY MAYE Stop: 03/16/22 08:59 Last Admin: 02/14/22 08:10 Dose: 1,000 mg Documented by: Aspirin (Aspirin 81 Mg Ectab) 81 mg PO DAILY MAYE Stop: 03/16/22 08:59 Last Admin: 02/14/22 08:10 Dose: 81 mg Documented by: Atorvastatin Calcium (Atorvastatin 10 Mg Tab) 10 mg PO HS MAYE Stop: 03/15/22 20:59 Last Admin: 02/13/22 21:12 Dose: 10 mg Documented by: Atropine Sulfate (Atropine Sulfate 0.1 Mg/Ml Syringe) 1 mg INJ ONE PRN PRN Reason: Bradycardia Stop: 03/15/22 16:54 Clonazepam (Clonazepam 0.5 Mg Tab) 0.5 mg PO TID PRN PRN Reason: Anxiety Stop: 03/15/22 16:54 Docusate Sodium (Docusate Sodium 100 Mg Cap) 200 mg PO DAILY [facility] Stop: 03/16/22 08:59 Last Admin: 02/14/22 08:09 Dose: 200 mg Documented by: Famotidine (Famotidine 20 Mg Tab) 20 mg PO BID MAYE Stop: 03/15/22 20:59 Last Admin: 02/14/22 08:10 Dose: 20 mg Documented by: Guaifenesin (Guaifenesin 600 Mg Tabcr) 600 mg PO BID MAYE Stop: 03/15/22 20:59 Last Admin: 02/14/22 08:10 Dose: 600 mg Documented by: Levetiracetam (Levetiracetam 500 Mg Tab) 500 mg PO HS MAYE Stop: 03/15/22 20:59 Last Admin: 02/13/22 21:12 Dose: 500 mg Documented by: Levetiracetam (Levetiracetam 250 Mg Tab) 250 mg PO BID@0900,1300 [facility] Stop: 03/16/22 08:59 Last Admin: 02/14/22 14:40 Dose: 250 mg Documented by: Levothyroxine Sodium (Levothyroxine Sodium 125 Mcg Tablet) 125 mcg PO DAILYBB [facility] Stop: 03/17/22 06:29 Menthol (Cough Drop (Sugar Free) Marcelo 24 Marcelo/1 Box) 2 marcelo BUCCAL Q2H PRN PRN Reason: Sore Throat Stop: 03/15/22 16:54 Miscellaneous (Order Awaiting Action) 1 ea N/A QS [facility] Stop: 03/16/22 00:00 Last Admin: 02/14/22 16:13 Dose: Not Given Documented by: Ondansetron HCl (Ondansetron Inj 2 Mg/Ml 2 Ml Vial) 4 mg IV Q6H PRN PRN Reason: Nausea Stop: 03/15/22 16:54 Pantoprazole Sodium (Pantoprazole 40 Mg Tab) 40 mg PO DAILY [facility] Stop: 03/16/22 08:59 Last Admin: 02/14/22 08:09 Dose: 40 mg Documented by: Polyethylene Glycol (Polyethylene (Miralax) 17 Gm Pack) 17 gm PO MoWeFr@1700 [facility] Stop: 03/15/22 19:59 Last Admin: 02/13/22 21:13 Dose: 17 gm Documented by: Risperidone (Risperidone 2 Mg Tablet) 2 mg PO [facility] Stop: 03/15/22 20:59 Last Admin: 02/13/22 21:12 Dose: 2 mg Documented by: Trazodone HCl (Trazodone Hcl 50 Mg Tab) 150 mg PO HS [facility] Stop: 03/15/22 20:59 Last Admin: 02/13/22 21:12 Dose: 150 mg Documented by: Venlafaxine HCl (Venlafaxine Hcl Xr 150 Mg Capxr) 150 mg PO QAM [facility] Stop: 03/16/22 08:59 Last Admin: 02/14/22 08:10 Dose: 150 mg Documented by: Venlafaxine HCl (Venlafaxine Hcl Xr 75 Mg Capxr) 75 mg PO 1300 [facility] Stop: 03/16/22 12:59 Last Admin: 02/14/22 14:40 Dose: 75 mg Documented by: Vitamin D (Cholecalciferol 1,000 Units 25 Mcg Tab) 1,000 units PO DAILY [facility] Stop: 03/16/22 08:59 Last Admin: 02/14/22 08:09 Dose: 1,000 units Documented by: PG Care Time/CCT Total # of Minutes Spent Total Time Spent with Patient: Total time spent is greater than 50% in coordination of care (as documented) at patient's floor/unit and/or counseling patient: Coding Level of Care Code 72294 Initial Inpt Care Lvl 3 Diagnoses Atypical chest pain R07.89 Bradycardia R00.1 Dizziness R42
--- NOTE | 2022-02-14 17:16 | XCELERA ---
[id number]
[2022-02-14] MEDS: clonazePAM 0.5 MG TAB PO PRN (17:18)
[2022-02-14] MEDS: traZODone HCL 50 MG TAB PO SCH (20:24)
[2022-02-14] MEDS: risperiDONE 2 MG TABLET PO SCH (20:24)
[2022-02-14] MEDS: ATORVASTATIN 10 MG TAB PO SCH (20:25)
[2022-02-14] MEDS: levETIRAcetam 500 MG TAB PO SCH (20:25)
--- NOTE | 2022-02-14 22:35 | Electrocardiogram Report ---
Test Reason : Blood Pressure : / mmHG Vent. Rate : 046 BPM Atrial Rate : 046 BPM P-R Int : 142 ms QRS Dur : 166 ms QT Int : 464 ms P-R-T Axes : 010 019 067 degrees QTc Int : 406 ms Sinus bradycardia Left bundle branch block Abnormal ECG When compared with ECG of 02-SEP-2021 14:38, Premature supraventricular complexes are no longer Present Vent. rate has decreased BY 28 BPM T wave amplitude has decreased in Anterior leads QT has shortened Confirmed by Jimi Perez ([id number]) on 02/14/2022 10:34:35 PM Referred By: Joya Osman Confirmed By:Jimi Perez
[2022-02-15] MEDS ORDERED: MELATONIN 3 MG TAB PO ONE (02:07)
[2022-02-15] MEDS ORDERED: LEVOTHYROXINE SODIUM 125 MCG TABLET PO SCH (06:30)
--- NOTE | 2022-02-15 07:27 | Discharge Summary ---
Date of Service February 15, 2022 Admission HPI Per Admitting Provider Nando Restrepo is a 61 y/o male with PMH significant for schizoaffective disorder, hyperlipidemia, GERD, and hypothyroidism who presents today from inpatient psychiatric facility for chest pain. At baseline, patient has some difficulty with speech dysarthria/dystonia so history is collected from patient, as well as ED provider and facility notes. Patient first experienced the chest pain on Friday, 02/10 around 9 AM while he was sitting in one of his group therapies. Chest pain has been on and off over the past 3 days since then feels like a pressure on his chest but does not radiate elsewhere, although he does mention that one time it seemed to go from his stomach to his throat. He states at its worst this morning it was an 8/10, but now is down to a 3-4/10 after receiving Zofran and morphine. He has not experienced chest pain like this before. The pain has come on at rest and activity, patient woke up with it this morning. He does not believe it is any better or worse with positions, does not begin immediately after meal. He thinks he may have been nauseous with it few times and also reports feeling lightheaded at points, but cannot really elaborate much further. He does not have a history of heart disease. In ED, he is bradycardic with HR 40-50s, borderline soft BPs. Labs largely unremarkable, initial hs Trop 9.2. Hgb 12.8, glucose 114. CXR unremarkable. Principal Diagnosis Lightheadedness/dizziness/chest discomfort Discharge Exam General: NAD. Cooperative. HEENT: Atraumatic, normocephalic. Vision and hearing grossly intact Pulm: CTAB A&P. -wheezes, -rales, -rhonchi. Symmetrical chest rise. No increase in work of breathing. No respiratory distress. Cardiac: Bradycardic at rest, normal while walking, -mrg. Radial pulses intact and symmetrical. Sternal/L sternal tenderness to palpation without crepitus Abdominal: Nontender, nondistended, soft. BS present. Extremities: Warm, dry, without edema. Sensation grossly intact to soft touch in hands and feet Discharge Data Allergies Allergy/AdvReac Type Severity Reaction Status Date / Time oxazepam Allergy Unknown Unknown Unverified 02/13/22 14:35 adhesive tape Allergy Unknown Unverified 09/02/21 15:40 bee venom protein (honey bee) Allergy Unknown Unverified 02/13/22 14:35 chlorpromazine Allergy Unknown Unverified 02/13/22 14:35 [From Thorazine] latex Allergy Unknown Unverified 02/13/22 14:35 propranolol [From Inderal LA] Allergy Unknown Unverified 02/13/22 14:35 Consultations 02/13/22 13:42 ED Decision to Admit Stat 02/13/22 16:55 Consult Cardiology Routine Hospital Course (1) Bradycardia: Dmitriy is a 61-year-old male with a past medical history of schizoaffective disorder, thyroid, hypothyroidism, hyperlipidemia who presented with chest pain and lightheadedness/dizziness. His chest discomfort is reproducible on palpation. Chest discomfort was not worsened with exertion, has occurred intermittently at rest. High-sensitivity troponin x2 were negative on admission, and again the following day. His pain did improve with morphine. Patient endorses that he thinks his chest pain is related to anxiety. He was seen by cardiology and there was a note of bradycardia requiring atropine prior to admission. Patient was ambulated and while he has a low resting heart rate did show appropriate chronotropic response. Orthostatic vitals did not show substantial orthostatic hypotension. Evaluation indicative of noncardiac chest pain. He may also have lightheadedness and dizziness as a effect of medications, due to his complex medical history and stability during inpatient further changes were deferred to his PCP at the [facility]. Did discuss nurse with the [facility] staff and left voicemail for provider.Effexor was dose decreased to 75mg for AM dose with additional titration by Osman. Bradycardia No bradycardia appreciated patient's last visit in August, per patient no history of bradycardia No history of beta-melia or antiarrhythmic treatment Troponin negative, no acute ST segment changes TSH normal, Lyme serology negative Initially patient had received atropine for heart rate sustained under 40 with lightheadedness and dizziness in route to ER, patient is able to walk today with appropriate rise in heart rate to the 70s. No heart block overnight, no pauses greater than 2.5 seconds overnight. Patient does endorse some lightheadedness/dizziness when standing Orthostatic vitals: Blood pressure lying 126/70; sitting 134/72; standing 119/64 Pulse lying 51, sitting 61, standing 60 Does not show reduction of 20 systolic/10 diastolic between positions performed at 1-2 minute interval Echo with normal LV SF 60-65%, no regional wall motion abnormalities. Mild mitral regurg moderate concentric LVH (2) Chest pain: - Initial hsTrop 9.2, EKG shows sinus bradycardia and chronic LBBB without any specific ST segment or T wave changes, patient did have 3 days of symptoms -Pain-free with morphine/Zofran after admission, some reports of chest pain in the morning which was reproducible on palpation but which was improved/resolved at rest at time of bedside assessment -Noncardiac, suspect MSK Repeat at bedtime troponin 8.3. Not consistent with ACS Reproducible on exam Can continue nonnarcotic analgesics, Voltaren, lidocaine (3) Psychiatric disorder: - Schizoaffective disorder per patient, patient reports he is doing well and is stable on his medications below - Keppra 250mg 0900 and 1300, 500mg at HS - Risperidone 2mg HS - Venlafaxine ER 150mg AM, 75 mg at 1300 --> 75mg AM /1300 on discharge - Trazodone 150 mg HS. - Klonopin 0.5 mg TID as needed for anxiety. Patient does endorse continued anxiety with a complicated medication history, has follow-up at the [facility] for adjustments (4) Hypothyroid: - Continue levothyroxine 125 mcg daily. -TSH normal (5) Hyperlipidemia: - Continue atorvastatin 10 mg daily. (6) GERD (gastroesophageal reflux disease): - Continue Protonix 40 mg daily. - Pepcid 20 twice daily - Admit to PCU. - SCDs for DVT PPx - Full code. Total Time Total Time Spent Total Time Spent (In Minutes): Time spend day of discharge 45 minutes including direct patient care, documentation, review of labs and images, and coordination of care. Discharge Plan Discharge Items Patient Disposition: Transfer Behavioral Health Fac Reason For Visit: CHEST PAIN WITH SYMPTOMATIC BRADYCARDIA Discharge Diagnosis: Noncardiac Chest Pain Activity: Resume your previous activity Non-emergency contact: Primary Care Provider Call non-emergency contact if: you have any medication questions, your symptoms worsen and your pain is not controlled Follow-up/Referrals: Joya Osman [Primary Care Provider] - Diet: Regular Addtl Attending Provider Instructions: You were seen in the hospital for chest pain and lightheadedness with dizziness. You had a heart evaluation and did not show any evidence of heart attack. Your heart rate is low at rest, however its been up appropriately with walking/ambulation (you showed an appropriate chronotropic response) and a pacemaker was not indicated and unlikely to benefit your symptoms. An ultrasound of your heart (echocardiogram) showed normal heart size and pumping function. Your case was reviewed with cardiology. You had orthostatic vitals checked (vitals between standing and sitting) and did not have significant orthostatic hypotension. Your symptoms may be caused by medication effect/sedation. This was discussed with the [facility], and you are being discha rged back to their care with follow-up to primary care. You may have a outpatient Holter monitor to follow for infrequent pauses or heart rate that does not improve throughout the day, however this was not appreciated during her monitoring at the hospital. New medications have not been prescribed at this time. Your venlafaxine morning dose was decreased to 75mg daily. Due to your complicated medication history and ability to ambulate well during admission, additional medication changes were not made at time of hospitalization but your case was discussed with the [facility] who will followup with you when you return for additional adjustments. If you develop any new or worsening symptoms including fever, chills, sweats, chest pain, chest pressure, difficulty breathing, uncontrolled nausea/vomiting, rash, wheezing, passing out or nearly passing out, bleeding, black/bloody bowel movements, or other new or concerning symptoms please call your primary care physician and ultrasound of your heart showed normal pumping function or call 911 for re-evaluation in the emergency department if you are very concerned. Pending Studies at Discharge: No Stand-Alone Forms: My [facility] Medications and DC Order Prescriptions: Continued multivitamin Tablet 1 tab PO QAM RF: 0 ascorbic acid (vitamin C) 1,000 mg Tablet 1 g PO QAM RF: 0 acetaminophen 325 mg Tablet 650 mg PO Q4H PRN (Reason: Pain) RF: 0 omega-3 fatty acids 1,000 mg Capsule 1,000 mg PO BID RF: 0 atorvastatin 10 mg Tablet 10 mg PO HS RF: 0 clonazepam 0.5 mg Tablet 0.5 mg PO TID PRN (Reason: Anxiety) RF: 0 levothyroxine 25 mcg Tablet 25 mcg PO DAILY@0700 RF: 0 levothyroxine 100 mcg Tablet 100 mcg PO DAILY@0700 RF: 0 pantoprazole 40 mg Tablet,Delayed Release (Dr/Ec) 40 mg PO QAM RF: 0 trazodone 150 mg Tablet 150 mg PO HS RF: 0 docusate sodium 100 mg Capsule 200 mg PO BID RF: 0 aspirin 81 mg Tablet,Chewable 81 mg PO QAM RF: 0 alum-mag hydroxide-simeth 200-200-20 mg/5 mL Suspension 30 ml PO QID PRN (Reason: Gastric Reflux) RF: 0 epinephrine [EpiPen] 0.3 mg/0.3 mL Auto-Injector 0.3 mg IM UD PRN (Reason: Allergic Reaction) RF: 0 polyethylene glycol 3350 17 gram/dose Powder 17 g PO 3XWK RF: 0 fluticasone propionate 50 mcg/actuation [place],Suspension 1 spray INTRANASAL BID RF: 0 Hemorrhoidal Cream 0.25-1 % Cream 1 applic UT TID PRN (Reason: Hemorrhoids) RF: 0 cholecalciferol (vitamin D3) 25 mcg (1,000 unit) Tablet 25 mcg PO QAM RF: 0 benzocaine-menthol 15-3.6 mg Lozenge 2 ambrocio mucous membrane Q2H PRN (Reason: Sore Throat) RF: 0 guaifenesin [Mucinex] 600 mg Tablet Extended Release 12hr 600 mg PO BID RF: 0 levetiracetam 500 mg Tablet 500 mg PO HS RF: 0 levetiracetam 250 mg Tablet 250 mg PO BID RF: 0 montelukast [Singulair] 10 mg Tablet 10 mg PO QAM RF: 0 sennosides [senna] 8.6 mg Tablet 8.6 mg PO HS RF: 0 risperidone 2 mg Tablet 2 mg PO HS RF: 0 venlafaxine 75 mg Capsule,Extended Release 24hr 75 mg PO DAILY@1300 RF: 0 Changed venlafaxine 150 mg Capsule,Extended Release 24hr 75 mg PO QAM Qty: 0 RF: 0 Discharge Orders: Discharge Order (Routine); Ordered 02/15/22 Ordered By: Navdeep Iglesias Admission Data Admit Date/Time: 02/13/22 14:20 Attending Provider: Navdeep Iglesias Admit Provider: Navdeep Iglesias Primary Care Provider: Joya Osman Other Providers: Navdeep Iglesias ; Kavin Mccormick Coding Level of Care Code D/C DAY MANAGEMENT >30 MINS Diagnoses Bradycardia R00.1 Chest pain R07.9 Psychiatric disorder F99 Hypothyroid E03.9 Hyperlipidemia E78.5 GERD (gastroesophageal reflux disease) K21.9
--- NOTE | 2022-02-15 07:37 | Electrocardiogram Report ---
Test Reason : Blood Pressure : / mmHG Vent. Rate : 053 BPM Atrial Rate : 053 BPM P-R Int : 174 ms QRS Dur : 160 ms QT Int : 502 ms P-R-T Axes : 061 035 078 degrees QTc Int : 471 ms Poor data quality, interpretation may be adversely affected Sinus bradycardia with Premature atrial complexes Left bundle branch block Abnormal ECG When compared with ECG of 13-FEB-2022 10:40, Premature atrial complexes are now Present QT has lengthened Confirmed by Jimi Perez ([id number]) on 02/15/2022 7:37:00 AM Referred By: Joya Osman Confirmed By:Jimi Perez
[2022-02-15 07:58] LABS: Basophils # (auto) 0.02 K/uL (0-0.2); Basophils % (auto) 0.3 %; Eosinophils # (auto) 0.06 K/uL (0-0.5); Eosinophils % (auto) 0.8 %; Hematocrit (blood only) 40.4 % (42-52); Hemoglobin 13.2 g/dL (14.0-18.0); Immature Granulocytes # (auto) 0.02 K/uL (0.00-0.02); Immature Granulocytes % (auto) 0.3 %; Lymphocytes # (auto) 1.34 K/uL (1.2-3.4); Lymphocytes % (auto) 17.6 %; Mean Corpuscular Hemoglobin 28.1 pg (25-34); Mean Corpuscular Hgb Conc 32.7 g/dL (32-36); Mean Platelet Volume 11.2 fL (7.4-10.4); Monocytes # (auto) 0.53 K/uL (0.11-0.59); Neutrophils # (auto) 5.63 K/uL (1.4-6.5); Platelet Count 220 K/uL (130-400); RDW Coefficient of Variation 13.1 % (11.5-14.5); RDW Standard Deviation 41.1 fL (36.4-46.3)
[2022-02-15 08:09] LABS: BUN Creatinine Ratio 17.3 (10-20); Calcium 9.1 mg/dl (8.5-10.1); Chol HDL Ratio 5.2 (0-5); Creatinine Clr Calc Pharmacy 97.3 ml/min; Est GFR (African American) 94.7 ml/min; Est GFR (Non-African American) 81.7 ml/min
[2022-02-15] MEDS: guaiFENesin 600 MG TABCR PO SCH (08:33)
[2022-02-15] MEDS: ASCORBIC ACID 500 MG TAB PO SCH (08:33)
[2022-02-15] MEDS: clonazePAM 0.5 MG TAB PO PRN (08:33)
[2022-02-15] MEDS: FAMOTIDINE 20 MG TAB PO SCH (08:33)
[2022-02-15] MEDS: PANTOprazole 40 MG TAB PO SCH (08:34)
[2022-02-15] MEDS: ASPIRIN 81 MG ECTAB PO SCH (08:34)
[2022-02-15] MEDS: VENLAFAXINE HCL XR 150 MG CAPXR PO SCH (08:34)
[2022-02-15] MEDS: CHOLECALCIFEROL 1,000 UNITS 25 MCG TAB PO SCH (08:34)
[2022-02-15] MEDS: levETIRAcetam 250 MG TAB PO SCH ×2 (08:34→13:24)
[2022-02-15] MEDS: DOCUSATE SODIUM 100 MG CAP PO SCH (08:34)
[2022-02-15] MEDS: DICLOFENAC SOD 1% GEL 100 GM TUBE EXT SCH ×2 (08:36→13:23)
[2022-02-15] MEDS: VENLAFAXINE HCL XR 75 MG CAPXR PO SCH (13:24)
== END 2022-02-15 16:39 | DRG 313 ==
LOC: ED 10:33 → INTOOBSV 14:20 → EDINP 14:20 → 2S 17:59

== ENCOUNTER 2022-03-28 15:32 | Inpatient (IN) ==
[2022-03-28] MEDS ORDERED: KETOROLAC TROMETHAMINE 15 MG/ML VIAL IV ONE (15:42)
--- NOTE | 2022-03-28 15:49 | Emergency Department Note ---
Impression & Plan Embolism, pulmonary with infarction, Pulmonary embolism, Chest pain ED Provider Note NAME: CHELSEA MACKENZIE AGE: 61 SEX: M : 1960 ARRIVES VIA: Ambulance INFORMANT: Patient, EMS ED PROVIDER(S): Kavin Pyle DO CHIEF COMPLAINT: Chest pain HPI: The patient is a 61-year-old male who presented to the emergency department for an evaluation of chest pain. The patient describes anterior chest pain over his left side. He states it is over his left upper abdomen and left lower chest. He states it does radiate to his neck at times. He was given aspirin prior to arrival with small relief of his symptoms. He denies having any nausea or vomiting. He denies having any shortness of breath. He does have some redness in his left leg with swelling after a fall 7 weeks ago. He presented to the emergency department from the [facility]. He states he has been doing well in his therapy and has been taking all of his medications as prescribed. He denies having any suicidal homicidal ideation. ROS: See above HPI for pertinent positives & negatives. A total of 10 systems reviewed and were otherwise negative. PAST MEDICAL HISTORY: See Below PAST SURGICAL HISTORY: See Below FAMILY HISTORY: See Below SOCIAL HISTORY: See Below HOME MEDICATIONS: See Below ALLERGIES: See Below VITALS: See Below PHYSICAL EXAMINATION: GENERAL: Patient is awake alert in no acute distress patient is resting comfort ably and showing no signs of anxiety EYES: The conjunctivae are clear. The pupils are round and reactive. EARS, NOSE, MOUTH AND THROAT: The nose is without any evidence of any deformity. NECK: The neck is nontender and supple. RESPIRATORY: Normal respiratory effort is noted there is no evidence of wheezing rhonchi or rales CARDIOVASCULAR: Regular rate and rhythm noted there no murmurs rubs or gallops normal S1 normal S2. GASTROINTESTINAL: The abdomen is soft. Abdomen is nontender. MUSCULOSKELETAL/EXTREMITIES: There is no evidence of gross deformity full range of motion is noted in the hips and shoulders. SKIN: There is no obvious evidence of any rash. There is erythema and swelling noted on the anterior left leg. Pulses were symmetric in both feet. NEUROLOGIC: Patient is awake alert and oriented x3 MEDICAL DECISION MAKING: The patient is a 61-year-old male who presented to the emergency department from the [facility] where he is currently being treated for inpatient psychiatric issues. He presented to the emergency department today because of chest pain. The patient was found to have a left bundle branch block on EKG but this is u nchanged from previous. The patient also complained that he had pain in his left leg. There was erythema and swelling noted. The patient states that he injured this leg recently. Because of his swelling in his leg as well as the chest pain a D-dimer was ordered. I discussed the patient's laboratory and radiographic studies with him. I discussed his case with the on-call [facility] hospitalist. The patient was started on Lovenox in the emergency department. He was not tachycardic or hypoxic. Troponin was mildly elevated. Triage Nursing notes reviewed. Prior medical records reviewed Vital Signs: reviewed and remarkable for bradycardia. Differential diagnosis: Cardiac ischemia, aortic dissection, pulmonary embolism, pneumothorax, pneumonia, pericarditis, myocarditis, esophageal rupture, GERD, cholecystitis, pancreatitis, musculoskeletal, as well as other pathologies. ER treatment provided: See below Diagnostics interpreted by me: ECG: EKG was obtained in the emergency department. My interpretation is normal sinus rhythm at 71 bpm. There is no ectopy. Left bundle branch block pattern was noted. This was compared to a tracing from February 14, 2022. No changes were noted. Cardiac Monitoring: An order was placed for continuous cardiac monitoring. The monitor shows a rate of 57 bpm with sinus bradycardia. Laboratory studies: As stated above and show below. Imaging studies: See below Consultation(s): Dr. Silvestre was notified about the patient. ED COURSE: Procedures: none Critical Care: I have personally spent greater than 35 minutes of critical care time in the direct management of this patient. This includes bedside care, interpretation of diagnostic studies, and testing, discussion with consultants, patient, and family members, and other required patient management activities. This 35 minutes is in excess of all separately billable procedures. 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 Beliefs That Will Affect Care: None Current Living Situation: Other Current Living Situation Comment: lives in [facility] How many Children do You have: 0 Feels Safe at Home: Yes Assistive Devices: None Allergies Allergies Allergy/AdvReac Type Severity Reaction Status Date / Time oxazepam Allergy Unknown Unknown Unverified 02/13/22 14:35 adhesive tape Allergy Unknown Unverified 09/02/21 15:40 bee venom protein (honey bee) Allergy Unknown Unverified 02/13/22 14:35 chlorpromazine Allergy Unknown Unverified 02/13/22 14:35 [From Thorazine] latex Allergy Unknown Unverified 02/13/22 14:35 propranolol [From Inderal LA] Allergy Unknown Unverified 02/13/22 14:35 Home Meds Home Medications Medication Instructions Recorded Confirmed acetaminophen 325 mg tablet 650 mg PO Q4H PRN Pain 09/02/21 02/13/22 aluminum-mag hydroxide-simethicone 30 ml PO QID PRN Gastric Reflux 09/02/2101/24 200 mg-200 mg-20 mg/5 mL oral susp ascorbic acid (vitamin C) 1,000 mg 1 g PO QAM 09/02/21 02/13/22 tablet aspirin 81 mg chewable tablet 81 mg PO QAM 09/02/21 02/13/22 atorvastatin 10 mg tablet 10 mg PO HS 09/02/21 02/13/22 benzocaine 15 mg-menthol 3.6 mg 2 ambrocio mucous membrane Q2H PRN Sore 09/02/21 02/13/22 lozenges Throat cholecalciferol (vitamin D3) 25 25 mcg PO QAM 09/02/21 02/13/22 mcg (1,000 unit) tablet clonazepam 0.5 mg tablet 0.5 mg PO TID PRN Anxiety 09/02/21 02/13/22 docusate sodium 100 mg capsule 200 mg PO BID 09/02/21 02/13/22 epinephrine 0.3 mg/0.3 mL 0.3 mg IM UD PRN Allergic Reaction 09/02/21 02/13/22 injection, auto-injector (EpiPen) fluticasone propionate 50 1 spray intranasal BID 09/02/21 02/13/22 mcg/actuation nasal spray,suspension guaifenesin 600 mg tablet, 600 mg PO BID 09/02/21 02/13/22 extended release 12 hr (Mucinex) levothyroxine 100 mcg tablet 100 mcg PO DAILY@0700 09/02/21 02/13/22 levothyroxine 25 mcg tablet 25 mcg PO DAILY@0700 09/02/21 02/13/22 multivitamin 1 tab PO QAM 09/02/21 02/13/22 omega-3 fatty acids 1,000 mg 1,000 mg PO BID 09/02/21 02/13/22 capsule pantoprazole 40 mg tablet,delayed 40 mg PO QAM 09/02/21 02/13/22 release phenylephrine 0.25 %-pramoxine 1 1 applic NC TID PRN Hemorrhoids 09/02/21 02/13/22 %-glycerin-wh.petrolatum rectal cream (Hemorrhoidal Cream) polyethylene glycol 3350 17 17 g PO 3XWK 09/02/21 02/13/22 gram/dose oral powder trazodone 150 mg tablet 150 mg PO HS 09/02/21 02/13/22 levetiracetam 250 mg tablet 250 mg PO BID 02/13/22 02/13/22 levetiracetam 500 mg tablet 500 mg PO HS 02/13/22 02/13/22 montelukast 10 mg tablet 10 mg PO QAM 02/13/22 02/13/22 (Singulair) risperidone 2 mg tablet 2 mg PO HS 02/13/22 02/13/22 sennosides 8.6 mg tablet (senna) 8.6 mg PO HS 02/13/22 02/13/22 venlafaxine 75 mg capsule,extended 75 mg PO DAILY@1300 02/13/22 02/13/22 release 24 hr Previous Rx's Medication Instructions Recorded venlafaxine 150 mg 75 mg PO QAM #0 caps 02/15/22 capsule,extended release 24 hr Results & Data (ED) Vital Signs Vital Signs - 24 hr 03/28/22 15:58 03/28/22 15:58 03/28/22 15:58 Temperature 36.8 C 36.8 C Temperature Source Oral Oral Pulse Rate 73 Pulse Rate [Apical] 64 Pulse Rhythm Regular Pulse Rhythm [Apical] Regular Pulse Strength Normal Pulse Strength [Apical] Normal Respiratory Rate 18 18 Respiratory Effort / Characteristics Non-Labored Non-Labored Respiratory Depth Normal Normal Respiratory Pattern Regular Regular Blood Pressure 131/80 Blood Pressure [Right Arm] 131/80 Blood Pressure Mean 97 Blood Pressure Mean [Right Arm] 97 Blood Pressure Position Lying Blood Pressure Position [Right Arm] Lying Pulse Oximetry 99 96 97 Oxygen Delivery Method Room Air Room Air Room Air Sepsis Recent Fever Within 48 Hours No Sepsis New/Unexplained Change in Mental Status No Sepsis Action Taken by Nursing No Action Required 03/28/22 15:58 03/28/22 17:35 03/28/22 19:00 Temperature Temperature Source Pulse Rate 68 Pulse Rate [Apical] 80 54 L Pulse Rhythm Regular Pulse Rhythm [Apical] Regular Regular Pulse Strength Pulse Strength [Apical] Normal Respiratory Rate 18 18 17 Respiratory Effort / Characteristics Non-Labored Respiratory Depth Normal Normal Respiratory Pattern Blood Pressure Blood Pressure [Right Arm] 121/70 117/68 Blood Pressure Mean Blood Pressure Mean [Right Arm] 87 84 Blood Pressure Position Blood Pressure Position [Right Arm] Pulse Oximetry 96 97 97 Oxygen Delivery Method Room Air Room Air Sepsis Recent Fever Within 48 Hours Sepsis New/Unexplained Change in Mental Status Sepsis Action Taken by Nursing 03/28/22 20:00 03/28/22 21:00 Temperature Temperature Source Pulse Rate Pulse Rate [Apical] 57 L 66 Pulse Rhythm Pulse Rhythm [Apical] Pulse Strength Pulse Strength [Apical] Respiratory Rate 17 15 Respiratory Effort / Characteristics Respiratory Depth Respiratory Pattern Blood Pressure Blood Pressure [Right Arm] 135/73 111/70 Blood Pressure Mean Blood Pressure Mean [Right Arm] 93 83 Blood Pressure Position Blood Pressure Position [Right Arm] Pulse Oximetry 96 99 Oxygen Delivery Method Sepsis Recent Fever Within 48 Hours Sepsis New/Unexplained Change in Mental Status Sepsis Action Taken by Residential Medications Current Medication List: was personally reviewed by me Laboratory Data Attestation: I reviewed the patient's lab results. Result diagrams: 03/28/22 15:10 03/28/22 15:10 Lab Results 03/28/22 03/28/22 03/28/22 Range/Units 15:10 15:10 15:10 WBC 8.02 (4.8-10.8) K/ul RBC 4.20 L (4.63-6.08) M/uL Hgb 11.9 L (14.0-18.0) g/dl Hct 36.4 L (40.1-51.0) % MCV 86.7 (80.0-100.0) fL MCH 28.3 (25.0-34.0) pg MCHC 32.7 (32.0-36.0) g/dL RDW Std Deviation 41.5 (36.4-46.3) fL RDW Coeff of [place] 13.3 (11.5-14.5) % Plt Count 254 (130-400) K/uL MPV 10.6 (9.4-12.4) fL Immature Gran % (Auto) 0.1 % Neut % (Auto) 71.8 % Lymph % (Auto) 17.1 % [place] % (Auto) 9.2 % Eos % (Auto) 1.4 % Baso % (Auto) 0.4 % Neut # (Auto) 5.76 (1.4-6.5) K/uL Lymph # (Auto) 1.37 (1.2-3.4) K/uL [place] # (Auto) 0.74 (0.24-0.82) K/uL Eos # (Auto) 0.11 (0-0.50) K/uL Baso # (Auto) 0.03 (0-0.2) K/uL Immature Gran # (Auto) 0.01 (0.00-0.02) K/uL PT Cancelled INR Cancelled APTT Cancelled PTT Ratio Cancelled D-Dimer Cancelled Cancelled Sodium (136-145) mmol/L Potassium (3.5-5.1) mmol/L Chloride (98-107) mmol/L Carbon Dioxide (21-32) mmol/L Anion Gap (3-11) BUN (6-23) mg/dl Creatinine (0.6-1.4) mg/dl Est Cr Clr Drug Dosing ml/min Est GFR ( Amer) ml/min Est GFR (Non-Af Amer) ml/min BUN/Creatinine Ratio (10-20) Glucose (70-99(Fasting)) mg/dl Calcium (8.5-10.1) mg/dl Total Bilirubin (0.2-1.0) mg/dl AST (13-39) U/L ALT (7-52) U/L Alkaline Phosphatase (34-104) U/L Troponin I High Sens (0-20) pg/ml Total Protein (6.0-8.3) gm/dl Albumin (3.4-5.0) gm/dl Globulin (2.5-4.0) gm/dl Albumin/Globulin Ratio (0.9-2) Lipase (11-82) U/L Urine Color Urine Appearance (Clear) Urine pH (4.5-7.5) Ur Specific [place] (1.000-1.030) Urine Protein (Negative) Urine Glucose (UA) (Negative) Urine Ketones (Negative) Urine Blood (Negative) Urine Nitrite (Negative) Urine Bilirubin (Negative) Urine Urobilinogen (Negative) Ur Leukocyte Esterase (Negative) Urine RBC (0-4) /hpf Urine WBC (0-5) /hpf Ur Epithelial Cells (0-5) /lpf Urine Bacteria (Negative) SARS-CoV-2, RNA, NAAT (NEGATIVE) 03/28/22 03/28/22 03/28/22 Range/Units 15:10 15:15 16:55 WBC (4.8-10.8) K/ul RBC (4.63-6.08) M/uL Hgb (14.0-18.0) g/dl Hct (40.1-51.0) % MCV (80.0-100.0) fL MCH (25.0-34.0) pg MCHC (32.0-36.0) g/dL RDW Std Deviation (36.4-46.3) fL RDW Coeff of [place] (11.5-14.5) % Plt Count (130-400) K/uL MPV (9.4-12.4) fL Immature Gran % (Auto) % Neut % (Auto) % Lymph % (Auto) % [place] % (Auto) % Eos % (Auto) % Baso % (Auto) % Neut # (Auto) (1.4-6.5) K/uL Lymph # (Auto) (1.2-3.4) K/uL [place] # (Auto) (0.24-0.82) K/uL Eos # (Auto) (0-0.50) K/uL Baso # (Auto) (0-0.2) K/uL Immature Gran # (Auto) (0.00-0.02) K/uL PT 11.0 INR 1.0 APTT 25.1 PTT Ratio 0.9 D-Dimer 1390 H* Sodium 137 (136-145) mmol/L Potassium 3.7 (3.5-5.1) mmol/L Chloride 104 (98-107) mmol/L Carbon Dioxide 26 (21-32) mmol/L Anion Gap 7 (3-11) BUN 14 (6-23) mg/dl Creatinine 0.74 (0.6-1.4) mg/dl Est Cr Clr Drug Dosing 132.4 ml/min Est GFR ( Amer) 113.8 ml/min Est GFR (Non-Af Amer) 98.2 ml/min BUN/Creatinine Ratio 18.9 (10-20) Glucose 126 H (70-99(Fasting)) mg/dl Calcium 9.0 (8.5-10.1) mg/dl Total Bilirubin 0.5 (0.2-1.0) mg/dl AST 35 (13-39) U/L ALT 23 (7-52) U/L Alkaline Phosphatase 83 (34-104) U/L Troponin I High Sens 20.5 H D (0-20) pg/ml Total Protein 6.2 (6.0-8.3) gm/dl Albumin 3.9 (3.4-5.0) gm/dl Globulin 2.3 L (2.5-4.0) gm/dl Albumin/Globulin Ratio 1.7 (0.9-2) Lipase 57 (11-82) U/L Urine Color Yellow Urine Appearance Clear (Clear) Urine pH 7.5 (4.5-7.5) Ur Specific [place] 1.002 (1.000-1.030) Urine Protein Negative (Negative) Urine Glucose (UA) Negative (Negative) Urine Ketones Negative (Negative) Urine Blood Trace H (Negative) Urine Nitrite Negative (Negative) Urine Bilirubin Negative (Negative) Urine Urobilinogen Negative (Negative) Ur Leukocyte Esterase Negative (Negative) Urine RBC 0-4 (0-4) /hpf Urine WBC 0-5 (0-5) /hpf Ur Epithelial Cells 0-5 (0-5) /lpf Urine Bacteria Negative (Negative) SARS-CoV-2, RNA, NAAT (NEGATIVE) 03/28/22 Range/Units 20:18 WBC (4.8-10.8) K/ul RBC (4.63-6.08) M/uL Hgb (14.0-18.0) g/dl Hct (40.1-51.0) % MCV (80.0-100.0) fL MCH (25.0-34.0) pg MCHC (32.0-36.0) g/dL RDW Std Deviation (36.4-46.3) fL RDW Coeff of [place] (11.5-14.5) % Plt Count (130-400) K/uL MPV (9.4-12.4) fL Immature Gran % (Auto) % Neut % (Auto) % Lymph % (Auto) % [place] % (Auto) % Eos % (Auto) % Baso % (Auto) % Neut # (Auto) (1.4-6.5) K/uL Lymph # (Auto) (1.2-3.4) K/uL [place] # (Auto) (0.24-0.82) K/uL Eos # (Auto) (0-0.50) K/uL Baso # (Auto) (0-0.2) K/uL Immature Gran # (Auto) (0.00-0.02) K/uL PT INR APTT PTT Ratio D-Dimer Sodium (136-145) mmol/L Potassium (3.5-5.1) mmol/L Chloride (98-107) mmol/L Carbon Dioxide (21-32) mmol/L Anion Gap (3-11) BUN (6-23) mg/dl Creatinine (0.6-1.4) mg/dl Est Cr Clr Drug Dosing ml/min Est GFR ( Amer) ml/min Est GFR (Non-Af Amer) ml/min BUN/Creatinine Ratio (10-20) Glucose (70-99(Fasting)) mg/dl Calcium (8.5-10.1) mg/dl Total Bilirubin (0.2-1.0) mg/dl AST (13-39) U/L ALT (7-52) U/L Alkaline Phosphatase (34-104) U/L Troponin I High Sens (0-20) pg/ml Total Protein (6.0-8.3) gm/dl Albumin (3.4-5.0) gm/dl Globulin (2.5-4.0) gm/dl Albumin/Globulin Ratio (0.9-2) Lipase (11-82) U/L Urine Color Urine Appearance (Clear) Urine pH (4.5-7.5) Ur Specific [place] (1.000-1.030) Urine Protein (Negative) Urine Glucose (UA) (Negative) Urine Ketones (Negative) Urine Blood (Negative) Urine Nitrite (Negative) Urine Bilirubin (Negative) Urine Urobilinogen (Negative) Ur Leukocyte Esterase (Negative) Urine RBC (0-4) /hpf Urine WBC (0-5) /hpf Ur Epithelial Cells (0-5) /lpf Urine Bacteria (Negative) SARS-CoV-2, RNA, NAAT NEGATIVE (NEGATIVE) Administered Medications Discontinued Medications Acetaminophen (Acetaminophen 1000 Mg/100 Ml Iv) Confirm Administered Dose 1,000 mg IV .STK-MED ONE Stop: 03/28/22 21:43 Last Admin: 03/28/22 21:46 Dose: Not Given Documented By: EVIE Enoxaparin Sodium (Enoxaparin Inj 120 Mg/0.8 Ml Syr) 110 mg SQ NOW ONE Stop: 03/28/22 20:38 Last Admin: 03/28/22 20:45 Dose: 110 mg Documented By: EVIE Ioversol (Optiray 320 125ml) 119 ml IV ONCE ONE Stop: 03/28/22 18:02 Last Admin: 03/28/22 18:02 Dose: 119 ml Documented By: [facility] Ketorolac Tromethamine (Ketorolac Tromethamine 15 Mg/Ml Vial) 10 mg IV NOW ONE Stop: 03/28/22 15:43 Last Admin: 03/28/22 15:54 Dose: 10 mg Documented By: [facility] Imaging Data Radiologist's Impression: Chest X-Ray 03/28/22 15:42 XR chest 1V portable CLINICAL HISTORY: Atypical chest pain. COMPARISON STUDY: Chest radiograph February 13, 2022. FINDINGS: Lung volumes are normal. Lungs are clear. There is no pneumothorax or pleural effusion. Cardiac size is normal. Mediastinal contours are normal. There is no evidence for pulmonary edema. Old right fifth rib fracture is incidentally noted. IMPRESSION: No acute cardiopulmonary findings. ACT 112: Negative or not required by law. Electronically signed by: Travis Krause M.D. 03/28/2022 4:19 PM Chest CTA 03/28/22 17:31 CHEST CTA for PULMONARY ARTERIES CT DOSE: 547.60 mGy.cm HISTORY: Midsternal chest pain and shortness of breath. TECHNIQUE: Multiaxial CT images of the chest were performed following the intravenous administration of contrast to evaluate the pulmonary arteries. Maximal intensity projection images were also obtained. A dose lowering technique was utilized adhering to the principles of ALARA. COMPARISON STUDY: None. FINDINGS: The visualized liver, spleen, adrenal glands are unremarkable. Trace right pleural effusion. No pericardial effusion. The No mediastinal or hilar lymphadenopathy. Mild thickening at the distal esophagus/gastroesophageal junction. This is nonspecific but could represent a mild esophagitis. The heart is normal in size. Normal caliber thoracic aorta with no evidence for dissection. The majority of the bilateral lower lobe and lingular segmental and subsegmental pulmonary arteries are nondiagnostic due to the respiratory motion. There is no contrast identified within the right posterior basal segmental/subsegmental arteries within the right lung base best seen on image 107. Therefore, this is consistent with a pulmonary embolus. Remaining central pulmonary arteries appear patent. No evidence for right-sided heart strain. There is mild calcified plaque within the left coronary artery. There are healing right anterior third through ninth rib fractures. No pneumothorax. The central airways are patent. There is a 4 mm subpleural nodule within the right lung apex on image 234. Small fat-containing right-sided Bochdalek hernia. Linear densities the base of the right lower lobe favor subsegmental atelectasis. A small pulmonary infarct could also have a similar appearance. IMPRESSION: 1. Although difficult to assess due to the respiratory motion artifact, there is no contrast identified within the right lower lobe posterior basal segmental/subsegmental pulmonary arteries. Therefore, this is consistent with a pulmonary embolus. 2. Linear densities within the base the right lower lobe may represent subsegmental atelectasis or a small pulmonary infarct. 3. Trace right pleural effusion. 4. Healing right anterior third through ninth rib fractures. No pneumothorax. 5. A 4 mm subpleural indeterminate pulmonary nodule within the right lung apex. Please refer to below summary of Fleischner criteria recommendations for follow- up of incidental CT nodules (Gerard Olivera, Guidelines for management of small pulmonary nodules detected on CT scans: A statement from the Fleischner Society, Radiology 237: [phone].) SOLID NODULES Solitary nodule size: <6 mm * Low risk patients: no follow-up needed * high risk patients: optional CT at 12 months Solitary nodule size: 6-8 mm * Low risk patients: follow-up at 6-12 months, then consider further follow-up at 18-24 months * high risk patients: initial follow-up CT at 6-12 months and then at 18-24 months if no change Solitary nodule size: >8 mm * either low or high risk patients - consider follow-up CT at 3 months, and/or CT-PET, and/or biopsy Multiple nodules size: <6 mm * Low risk patients: no routine follow-up * high risk patients: optional CT at 12 months Multiple nodules size: 6-8 mm * Low risk patients: follow-up at 3-6 months, then consider further follow-up at 18-24 months * high risk patients: follow-up at 3-6 months, then at 18-24 months if no ch carlin Multiple nodules size: >8 mm * Low risk patients: follow-up at 3-6 months, then consider further follow-up at 18-24 months * high risk patients: follow-up at 3-6 months, then at 18-24 months if no change Note: newly detected indeterminate nodule in persons 35 years of age or older. * Low risk patients: minimal or absent history of smoking and/or other known risk factors * high risk patients: history of smoking or of other known risk factors (e.g. first degree relative with lung cancer, or exposure to asbestos, radon, uranium) * if a nodule up to 8 mm is partly solid or is ground glass further follow-up is required after 24 months to exclude possible slow growing adenocarcinoma (TAMIKO) SUBSOLID NODULES Solitary pure ground-glass nodule * nodule size <6 mm - no CT follow-up required * nodule size >=6 mm - follow-up CT at 6-12 months, then every 2 years until 5 years Solitary part-solid nodule * nodule size <6 mm - no CT follow-up required * nodule size >=6 mm - follow-up CT at 3-6 months. If unchanged, and solid component remains <6 mm, then annual follow-up for 5 years Multiple subsolid nodules * nodule size <6 mm - follow-up CT at 3-6 months, consider further follow-up at 2 and 4 years if stable * nodule size >=6 mm - follow-up CT at 3-6 months, subsequent management based on the most suspicious nodule(s) ACT 112: Positive. There are findings on this exam that require communication between the performing entity and the patient following Patient Test Result Information Act ([place] Act 112) guidelines. Electronically signed by: Jan Swanson M.D. 03/28/2022 6:19 PM Discharge Plan Visit Data Chief Complaint: Chest Pain Stated Complaint: chest pain ED Provider: Kavin Pyle Discharge Problem: Embolism, pulmonary with infarction, Pulmonary embolism, Chest pain Patient Disposition: Being Evaluated by Hospitalist Forms Stand Alone Forms: [facility] Prescriptions Prescriptions: No Action multivitamin Tablet 1 tab PO QAM Rx Instructions: for supplement ascorbic acid (vitamin C) 1,000 mg Tablet 1 g PO QAM acetaminophen 325 mg Tablet 650 mg PO Q4H PRN (Reason: Pain) omega-3 fatty acids 1,000 mg Capsule 1,000 mg PO BID Rx Instructions: for high cholesterol atorvastatin 10 mg Tablet 10 mg PO HS clonazepam 0.5 mg Tablet 0.5 mg PO TID PRN (Reason: Anxiety) levothyroxine 25 mcg Tablet 25 mcg PO DAILY@0700 Rx Instructions: daily @ 0700 along with 100 mcg tablet for Hypothyroid levothyroxine 100 mcg Tablet 100 mcg PO DAILY@0700 Rx Instructions: Daily @ 0700 along with 25 mcg tablet for Hypothyroid pantoprazole 40 mg Tablet,Delayed Release (Dr/Ec) 40 mg PO QAM Rx Instructions: for GERD trazodone 150 mg Tablet 150 mg PO HS Rx Instructions: for insomnia docusate sodium 100 mg Capsule 200 mg PO BID Rx Instructions: for constipation aspirin 81 mg Tablet,Chewable 81 mg PO QAM alum-mag hydroxide-simeth 200-200-20 mg/5 mL Suspension 30 ml PO QID PRN (Reason: Gastric Reflux) Rx Instructions: fof Gastric distress epinephrine [EpiPen] 0.3 mg/0.3 mL Auto-Injector 0.3 mg IM UD PRN (Reason: Allergic Reaction) Rx Instructions: for Severe Allergic reaction polyethylene glycol 3350 17 gram/dose Powder 17 g PO 3XWK Rx Instructions: on Friday, Friday and Friday for constipation fluticasone propionate 50 mcg/actuation [place],Suspension 1 spray INTRANASAL BID Rx Instructions: for stuffy nose Hemorrhoidal Cream 0.25-1 % Cream 1 applic NC TID PRN (Reason: Hemorrhoids) cholecalciferol (vitamin D3) 25 mcg (1,000 unit) Tablet 25 mcg PO QAM Rx Instructions: supplement benzocaine-menthol 15-3.6 mg Lozenge 2 ambrocio mucous membrane Q2H PRN (Reason: Sore Throat) guaifenesin [Mucinex] 600 mg Tablet Extended Release 12hr 600 mg PO BID Rx Instructions: for Paroxysmal Nocturnal Dyspnea (PND) levetiracetam 500 mg Tablet 500 mg PO HS levetiracetam 250 mg Tablet 250 mg PO BID Rx Instructions: 0900 and 1300 montelukast [Singulair] 10 mg Tablet 10 mg PO QAM sennosides [senna] 8.6 mg Tablet 8.6 mg PO HS risperidone 2 mg Tablet 2 mg PO HS venlafaxine 75 mg Capsule,Extended Release 24hr 75 mg PO DAILY@1300 venlafaxine 150 mg Capsule,Extended Release 24hr 75 mg PO QAM Qty: 0 0RF Referrals Referrals: [facility] [Primary Care Provider] -
[2022-03-28 16:06] LABS: Basophils # (auto) 0.03 K/uL (0-0.2); Basophils % (auto) 0.4 %; Eosinophils # (auto) 0.11 K/uL (0-0.50); Eosinophils % (auto) 1.4 %; Hematocrit (blood only) 36.4 % (40.1-51.0); Hemoglobin 11.9 g/dl (14.0-18.0); Immature Granulocytes # (auto) 0.01 K/uL (0.00-0.02); Immature Granulocytes % (auto) 0.1 %; Lymphocytes # (auto) 1.37 K/uL (1.2-3.4); Lymphocytes % (auto) 17.1 %; Mean Corpuscular Hemoglobin 28.3 pg (25.0-34.0); Mean Corpuscular Hgb Conc 32.7 g/dL (32.0-36.0); Mean Corpuscular Volume 86.7 fL (80.0-100.0); Mean Platelet Volume 10.6 fL (9.4-12.4); Monocytes # (auto) 0.74 K/uL (0.24-0.82); Monocytes % (auto) 9.2 %; Neutrophils # (auto) 5.76 K/uL (1.4-6.5); Neutrophils % (auto) 71.8 %; Platelet Count 254 K/uL (130-400); RDW Coefficient of Variation 13.3 % (11.5-14.5); RDW Standard Deviation 41.5 fL (36.4-46.3); White Blood Count 8.02 K/ul (4.8-10.8)
--- NOTE | 2022-03-28 16:21 | XRay Report ---
XR chest 1V portable CLINICAL HISTORY: Atypical chest pain. COMPARISON STUDY: Chest radiograph February 13, 2022. FINDINGS: Lung volumes are normal. Lungs are clear. There is no pneumothorax or pleural effusion. Car diac size is normal. Mediastinal contours are normal. There is no evidence for pulmonary edema. Old r ight fifth rib fracture is incidentally noted. IMPRESSION: No acute cardiopulmonary findings. ACT 112: Negative or not required by law. Electronically signed by: Travis Krause M.D. 03/28/2022 4:19 PM
[2022-03-28 16:32] LABS: Troponin I High Sensitivity 20.5 pg/ml (0-20)
[2022-03-28 16:33] LABS: Appearance Urine Clear (Clear); Bilirubin Urine Negative (Negative); Blood Urine Trace (Negative); Color Urine Yellow; Glucose Urine UA Negative (Negative); Ketones Urine Negative (Negative); Leukocyte Esterase Urine Negative (Negative); Nitrite Urine Negative (Negative); Protein Urine Negative (Negative); Specific Gravity Urine 1.002 (1.000-1.030); Urobilinogen Urine Negative (Negative); pH Urine 7.5 (4.5-7.5)
[2022-03-28 16:42] LABS: Albumin Globulin Ratio 1.7 (0.9-2); Albumin Level 3.9 gm/dl (3.4-5.0); BUN Creatinine Ratio 18.9 (10-20); Bilirubin,Total 0.5 mg/dl (0.2-1.0); Creatinine Clr Calc Pharmacy 132.4 ml/min; Est GFR (African American) 113.8 ml/min; Est GFR (Non-African American) 98.2 ml/min; Globulin 2.3 gm/dl (2.5-4.0); Potassium 3.7 mmol/L (3.5-5.1); Total Protein 6.2 gm/dl (6.0-8.3)
[2022-03-28 17:16] LABS: Partial Thromboplastin Ratio 0.9; Partial Thromboplastin Time 25.1 Seconds (21.0-31.0)
[2022-03-28 17:19] LABS: Bacteria Urine Negative (Negative); Epithelial Cell Urine 0-5 /lpf (0-5); RBC Urine 0-4 /hpf (0-4); WBC Urine 0-5 /hpf (0-5)
[2022-03-28 17:22] LABS: D Dimer 1390 ug/L FEU (0-500)
[2022-03-28] MEDS ORDERED: OPTIRAY 320 125ml IV ONE (18:01)
--- NOTE | 2022-03-28 18:22 | CT Scan Report ---
CHEST CTA for PULMONARY ARTERIES CT DOSE: 547.60 mGy.cm HISTORY: Midsternal chest pain and shortness of breath. TECHNIQUE: Multiaxial CT images of the chest were performed following the intravenous administration of contrast to evaluate the pulmonary arteries. Maximal intensity projection images were also obtaine d. A dose lowering technique was utilized adhering to the principles of ALARA. COMPARISON STUDY: None. FINDINGS: The visualized liver, spleen, adrenal glands are unremarkable. Trace right pleural effusion . No pericardial effusion. The No mediastinal or hilar lymphadenopathy. Mild thickening at the distal esophagus/gastroesophageal junction. This is nonspecific but could represent a mild esophagitis. The heart is normal in size. Normal caliber thoracic aorta with no evidence for dissection. The majority of the bilateral lower lobe and lingular segmental and subsegmental pulmonary arteries are nondiagno stic due to the respiratory motion. There is no contrast identified within the right posterior basal segmental/subsegmental arteries within the right lung base best seen on image 107. Therefore, this is consistent with a pulmonary embolus. Remaining central pulmonary arteries appear patent. No evidence for right-sided heart strain. There is mild calcified plaque within the left coronary artery. There are healing right anterior third through ninth rib fractures. No pneumothorax. The central airways ar e patent. There is a 4 mm subpleural nodule within the right lung apex on image 234. Small fat-contai speedy right-sided Bochdalek hernia. Linear densities the base of the right lower lobe favor subsegment al atelectasis. A small pulmonary infarct could also have a similar appearance. IMPRESSION: 1. Although difficult to assess due to the respiratory motion artifact, there is no contrast identifi ed within the right lower lobe posterior basal segmental/subsegmental pulmonary arteries. Therefore, this is consistent with a pulmonary embolus. 2. Linear densities within the base the right lower lobe may represent subsegmental atelectasis or a small pulmonary infarct. 3. Trace right pleural effusion. 4. Healing right anterior third through ninth rib fractures. No pneumothorax. 5. A 4 mm subpleural indeterminate pulmonary nodule within the right lung apex. Please refer to below summary of Fleischner criteria recommendations for follow-up of incidental CT n odules (Gerard Olivera, Guidelines for management of small pulmonary nodules detected on CT scans: A sta tement from the Fleischner Society, Radiology 237: [phone].) SOLID NODULES Solitary nodule size: <6 mm * Low risk patients: no follow-up needed * high risk patients: optional CT at 12 months Solitary nodule size: 6-8 mm * Low risk patients: follow-up at 6-12 months, then consider further follow-up at 18-24 months * high risk patients: initial follow-up CT at 6-12 months and then at 18-24 months if no change Solitary nodule size: >8 mm * either low or high risk patients - consider follow-up CT at 3 months, and/or CT-PET, and/or biopsy Multiple nodules size: <6 mm * Low risk patients: no routine follow-up * high risk patients: optional CT at 12 months Multiple nodules size: 6-8 mm * Low risk patients: follow-up at 3-6 months, then consider further follow-up at 18-24 months * high risk patients: follow-up at 3-6 months, then at 18-24 months if no change Multiple nodules size: >8 mm * Low risk patients: follow-up at 3-6 months, then consider further follow-up at 18-24 months * high risk patients: follow-up at 3-6 months, then at 18-24 months if no change Note: newly detected indeterminate nodule in persons 35 years of age or older. * Low risk patients: minimal or absent history of smoking and/or other known risk factors * high risk patients: history of smoking or of other known risk factors (e.g. first degree relative with lung cancer, or exposure to asbestos, radon, uranium) * if a nodule up to 8 mm is partly solid or is ground glass further follow-up is required after 24 m onths to exclude possible slow growing adenocarcinoma (TAMIKO) SUBSOLID NODULES Solitary pure ground-glass nodule * nodule size <6 mm - no CT follow-up required * nodule size >=6 mm - follow-up CT at 6-12 months, then every 2 years until 5 years Solitary part-solid nodule * nodule size <6 mm - no CT follow-up required * nodule size >=6 mm - follow-up CT at 3-6 months. If unchanged, and solid component remains <6 mm, then annual follow-up for 5 years Multiple subsolid nodules * nodule size <6 mm - follow-up CT at 3-6 months, consider further follow-up at 2 and 4 years if sta ble * nodule size >=6 mm - follow-up CT at 3-6 months, subsequent management based on the most suspiciou s nodule(s) ACT 112: Positive. There are findings on this exam that require communication between the performing entity and the patient following Patient Test Result Information Act ([place] Act 112) guidelines. Electronically signed by: Jan Swanson M.D. 03/28/2022 6:19 PM
--- NOTE | 2022-03-28 18:55 | Electrocardiogram Report ---
Test Reason : Blood Pressure : / mmHG Vent. Rate : 071 BPM Atrial Rate : 071 BPM P-R Int : 160 ms QRS Dur : 142 ms QT Int : 426 ms P-R-T Axes : 069 014 085 degrees QTc Int : 462 ms Normal sinus rhythm Left bundle branch block Abnormal ECG When compared with ECG of 14-FEB-2022 07:38, Premature atrial complexes are no longer Present Confirmed by Sean Olivo ([id number]) on 03/28/2022 6:55:38 PM Referred By: Confirmed By:Deric Olivo
[2022-03-28] MEDS ORDERED: ENOXAPARIN INJ 120 MG/0.8 ML SYR SQ ONE (20:37)
--- NOTE | 2022-03-28 21:17 | History & Physical Report ---
Date of Service March 28, 2022 Assessment & Plan (1) Pulmonary embolism and infarction: Plan: 61 year old male w/ schizoaffective disorder, hypothyroidism, GERD, HLD who presents from [facility] (psych facility) w/ chest pain since yesterday 9 AM. He had similar presentation last admission to [facility] 02/13/22-02/15/22. - CTA PE w/ possible RLL posterior basal segmental/subsegmental PE w/ subsegmental atelectasis vs small pulmonary infarct. - PESI 73 points. Class II, Low Risk: 1.7-3.5% 30-day mortality in this group. - continue therapeutic dosing lovenox q12h - venous duplex BLE for possible DVT on L, assess clot burden - Main concern is the possible small pulmonary infarct. Therapeutic anticoag. Trend hs trop which is slightly elevated at 20s. Check echo to r/o heart strain. (2) Left-sided chest pain: Plan: - reproducible, similar to 02/13/22 [facility] admission's presentation - consult cardiology regarding if additional workup indicated as patient's recurrent chest pain may result in additional admissions in future. - repeat trop - echo as above. would check for pericarditis - more likely msk chest wall pain. location is not at rib fractures or right sided PE/pulm infarct. - prn IV tylenol for now (3) Schizoaffective disorder: Plan: w/ severe intermittent agitation at baseline. - will need assistance w/ med rec from pharmacy and from calling [facility]; attempted to reconcile w/ paper med list from [facility]; most of the psych meds show as discontinued or not administered in days. - no psych scheduled medication is currently ordered - prn zyprexa 5mg x 1 dose for severe agitation. consider IV ativan if aggressive/violent. He had also received PRN seroquel 25-50 mg while at [facility] for psychosis/agitation. (4) Multiple rib fractures involving four or more ribs: Plan: - noted on CTA chest. no flail chest on exam. pain is minimal. monitor (5) Hyperlipidemia: Plan: - continue home statin (6) GERD (gastroesophageal reflux disease): Plan: - continue home PPI (7) Hypothyroid: Plan: - continue home levothyroxine (8) Elevated troponin: Plan: - repeat in AM Plan Diet, fluids: regular diet. no fluids anticoag: therapeutic lovenox code: full, confirmed w/ patient dispo: med tele. History of Present Illness Chief Complaint: chest pain Primary Care Provider: Dawson 61 year old male w/ schizoaffective disorder, hypothyroidism, GERD, HLD who presents from [facility] (psych facility) w/ chest pain intermittent since yesterday morning at 9am, onset was at rest. He was admitted from 02/13/22- 02/15/22 for atypical chest pain. Intermittent, can last for a couple. Laying down helps the pain. Not exertional. Improved w/ taking deep breaths as he statss sometimes has similar from anxiety. No shortness of breath. Regarding his right rib fractures, he states he fell a month ago. He had hematuria red tint 3 wks ago, none recently. Dysuria couple weeks ago, resolved. Currently 6-7 left chest pain sharp, stabbing. Update: improved after IV tylenol. No associated diaphoresis, arm radiation, jaw pain, nausea, headache. Denies hx PR or stroke. Patient is a very poor historian. en route, received ativan 2mg and zyprexa 10mg for agitation. ED course: CTA chest showing healing 3rd-9th rib fractures and possible RLL posterior basal segmental/subsegmental PE w/ subsegmental atelectasis vs small pulmonary infarct. He was started on therapeutic SQ Lovenox. No leukocytosis. Hb 11.9, down from 13.2 (baseline) on 02/15/22. D-Dimer 1390. INR 1.0. BMP wnl. Hstrop elev to 20.5. UA trace blood. Covid neg. ecg w/ LBBB that is not new. qtc 462. Allergies Allergy/AdvReac Type Severity Reaction Status Date / Time oxazepam Allergy Unknown Unknown Unverified 03/29/22 02:09 adhesive tape Allergy Unknown Unverified 03/29/22 02:09 bee venom protein (honey bee) Allergy Unknown Unverified 03/29/22 02:09 chlorpromazine Allergy Unknown Unverified 03/29/22 02:09 [From Thorazine] latex Allergy Unknown Unverified 03/29/22 02:09 propranolol [From Inderal LA] Allergy Unknown Unverified 03/29/22 02:09 Home Medications Medication Instructions Recorded Confirmed Type aluminum-mag hydroxide-simethicone 30 ml PO QID PRN Gastric Reflux 09/02/21 03/28/22 History 200 mg-200 mg-20 mg/5 mL oral susp aspirin 81 mg chewable tablet 81 mg PO QAM 09/02/21 03/29/22 History atorvastatin 10 mg tablet 10 mg PO HS 09/02/21 03/29/22 History benzocaine 15 mg-menthol 3.6 mg 2 ambrocio mucous membrane Q2H PRN Sore 09/02/21 03/28/22 History lozenges Throat cholecalciferol (vitamin D3) 25 25 mcg PO QAM 09/02/21 03/29/22 History mcg (1,000 unit) tablet docusate sodium 100 mg capsule 200 mg PO BID 09/02/21 03/29/22 History epinephrine 0.3 mg/0.3 mL 0.3 mg IM UD PRN Allergic Reaction 09/02/21 03/28/22 History injection, auto-injector (EpiPen) fluticasone propionate 50 1 spray intranasal BID 09/02/21 03/28/22 History mcg/actuation nasal spray,suspension guaifenesin 600 mg tablet, 600 mg PO BID 09/02/21 03/28/22 History extended release 12 hr (Mucinex) levothyroxine 100 mcg tablet 100 mcg PO DAILY@0700 09/02/21 03/29/22 History levothyroxine 25 mcg tablet 25 mcg PO DAILY@0700 09/02/21 03/29/22 History multivitamin 1 tab PO QAM 09/02/21 03/29/22 History omega-3 fatty acids 1,000 mg 1,000 mg PO DAILY 09/02/21 03/29/22 History capsule pantoprazole 40 mg tablet,delayed 40 mg PO QAM 09/02/21 03/29/22 History release phenylephrine 0.25 %-pramoxine 1 1 applic LA TID PRN Hemorrhoids 09/02/21 03/28/22 History %-glycerin-wh.petrolatum rectal cream (Hemorrhoidal Cream) polyethylene glycol 3350 17 17 g PO 3XWK 09/02/21 03/29/22 History gram/dose oral powder sennosides 8.6 mg tablet (senna) 8.6 mg PO HS 02/13/22 03/28/22 History acetaminophen 325 mg tablet 650 mg PO Q4 PRN Pain 03/29/22 03/29/22 History (Tylenol) artificial tears with lanolin eye 1 applic ophthalmic (eye) Q4 PRN 03/29/22 03/29/22 History ointment .EYE DISCOMFORT ascorbic acid (vitamin C) 500 mg 500 mg PO DAILY 03/29/22 03/29/22 History tablet (Vitamin C) calcium carbonate 200 mg calcium 0 mg PO DIRECTED 03/29/22 03/29/22 History (500 mg) chewable tablet (Antacid (calcium carbonate)) donepezil 5 mg tablet 10 mg PO HS 03/29/22 03/29/22 History gabapentin 300 mg capsule 300 mg PO TID 03/29/22 03/29/22 History lidocaine 4 % topical patch 1 patch topical .REMOVE HS PRN .. 03/29/22 03/29/22 History lidocaine 4 % topical patch 1 patch topical DAILY PRN Pain 03/29/22 03/29/22 History montelukast 10 mg tablet 10 mg PO DAILY 03/29/22 03/29/22 History quetiapine 100 mg tablet (Seroquel) 100 mg PO BID 03/29/22 03/29/22 History quetiapine 200 mg tablet (Seroquel) 400 mg PO HS 03/29/22 03/29/22 History quetiapine 50 mg tablet (Seroquel) 50 mg PO .Q30MIN PRN .SEVERE 03/29/22 03/29/22 History AGGITATION Past Med/Surg History Medical History Atypical chest pain Chest pain COVID-19 Dizziness GERD (gastroesophageal reflux disease) Hyperlipidemia Hypothyroid Psychiatric disorder Schizo affective schizophrenia Social History Smoking Status: Never smoker Tobacco Type: Cigarettes Hx Alcohol Use: No Hx Substance Use: No Preferred Language: Cymro Communication Ability: Effective 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 He knows he is at [facility] for chest pain. NAD. Cooperative. HEENT: Atraumatic, normocephalic. EOMI Pulm: CTAB. -wheezes, -rales, -rhonchi. No respiratory distress. No flail chest and no accessory muscle use. Cardiac: RRR, -mrg. Radial pulses intact and symmetrical. 1 to 2+ BLE. L rush has erythematous sheen. Msk: Reproducible L chest pain at area surrounding nipple. R lateral ribs mild ttp, no subj pain at rest. No flail chest noted. Appears breathing comfortably on room air. Abdominal: Nontender, nondistended, soft. Psych: Pressured speech. Very hard to hear discern what patient is saying as his words blend together. Results & Data Results & Data ([facility]) Vital Signs (Past 12 Hours) Vital Signs Temp Pulse Pulse Resp BP BP Pulse Ox 03/28/22 20:00 57 L 17 135/73 96 03/28/22 19:00 54 L 17 117/68 97 03/28/22 17:35 80 18 121/70 97 03/28/22 15:58 68 18 96 03/28/22 15:58 36.8 C 64 18 131/80 97 03/28/22 15:58 96 03/28/22 15:58 36.8 C 73 18 131/80 99 O2 Del Method 03/28/22 20:00 03/28/22 19:00 03/28/22 17:35 Room Air 03/28/22 15:58 Room Air 03/28/22 15:58 Room Air 03/28/22 15:58 Room Air 03/28/22 15:58 Room Air Laboratory Results Cardiac Enzymes 03/28/22 Range/Units 15:10 AST 35 (13-39) U/L Troponin I High Sens 20.5 H D (0-20) pg/ml Coagulation 03/28/22 03/28/22 Range/Units 15:10 16:55 PT Cancelled 11.0 APTT Cancelled 25.1 CBC 03/28/22 Range/Units 15:10 WBC 8.02 (4.8-10.8) K/ul RBC 4.20 L (4.63-6.08) M/uL Hgb 11.9 L (14.0-18.0) g/dl Hct 36.4 L (40.1-51.0) % Plt Count 254 (130-400) K/uL Neut # (Auto) 5.76 (1.4-6.5) K/uL Lymph # (Auto) 1.37 (1.2-3.4) K/uL [place] # (Auto) 0.74 (0.24-0.82) K/uL Eos # (Auto) 0.11 (0-0.50) K/uL Baso # (Auto) 0.03 (0-0.2) K/uL Comprehensive Metabolic Panel 03/28/22 Range/Units 15:10 Sodium 137 (136-145) mmol/L Potassium 3.7 (3.5-5.1) mmol/L Chloride 104 (98-107) mmol/L Carbon Dioxide 26 (21-32) mmol/L BUN 14 (6-23) mg/dl Creatinine 0.74 (0.6-1.4) mg/dl Glucose 126 H (70-99(Fasting)) mg/dl Calcium 9.0 (8.5-10.1) mg/dl AST 35 (13-39) U/L ALT 23 (7-52) U/L Alkaline Phosphatase 83 (34-104) U/L Total Protein 6.2 (6.0-8.3) gm/dl Albumin 3.9 (3.4-5.0) gm/dl Intake and Output 03/28/22 03/28/22 03/28/22 06:59 14:59 22:59 Other: Weight 109.1 kg Weight Measurement Method Built in [facility] Patient Weight 03/29/22 06:59 Weight 109.1 kg Diagnostic Findings Chest X-Ray 03/28/22 15:42 XR chest 1V portable CLINICAL HISTORY: Atypical chest pain. COMPARISON STUDY: Chest radiograph February 13, 2022. FINDINGS: Lung volumes are normal. Lungs are clear. There is no pneumothorax or pleural effusion. Cardiac size is normal. Mediastinal contours are normal. There is no evidence for pulmonary edema. Old right fifth rib fracture is incidentally noted. IMPRESSION: No acute cardiopulmonary findings. ACT 112: Negative or not required by law. Electronically signed by: Travis Krause M.D. 03/28/2022 4:19 PM Chest CTA 03/28/22 17:31 CHEST CTA for PULMONARY ARTERIES CT DOSE: 547.60 mGy.cm HISTORY: Midsternal chest pain and shortness of breath. TECHNIQUE: Multiaxial CT images of the chest were performed following the intravenous administration of contrast to evaluate the pulmonary arteries. Maximal intensity projection images were also obtained. A dose lowering technique was utilized adhering to the principles of ALARA. COMPARISON STUDY: None. FINDINGS: The visualized liver, spleen, adrenal glands are unremarkable. Trace right pleural effusion. No pericardial effusion. The No mediastinal or hilar lymphadenopathy. Mild thickening at the distal esophagus/gastroesophageal junction. This is nonspecific but could represent a mild esophagitis. The heart is normal in size. Normal caliber thoracic aorta with no evidence for dissectio n. The majority of the bilateral lower lobe and lingular segmental and subsegmental pulmonary arteries are nondiagnostic due to the respiratory motion. There is no contrast identified within the right posterior basal segmental/subsegmental arteries within the right lung base best seen on image 107. Therefore, this is consistent with a pulmonary embolus. Remaining central pulmonary arteries appear patent. No evidence for right-sided heart strain. There is mild calcified plaque within the left coronary artery. There are healing right anterior third through ninth rib fractures. No pneumothorax. The central airways are patent. There is a 4 mm subpleural nodule within the right lung apex on image 234. Small fat-containing right-sided Bochdalek hernia. Linear densities the base of the right lower lobe favor subsegmental atelectasis. A small pulmonary infarct could also have a similar appearance. IMPRESSION: 1. Although difficult to assess due to the respiratory motion artifact, there is no contrast identified within the right lower lobe posterior basal segmental/subsegmental pulmonary arteries. Therefore, this is consistent with a pulmonary embolus. 2. Linear densities within the base the right lower lobe may represent subsegmental atelectasis or a small pulmonary infarct. 3. Trace right pleural effusion. 4. Healing right anterior third through ninth rib fractures. No pneumothorax. 5. A 4 mm subpleural indeterminate pulmonary nodule within the right lung apex. Please refer to below summary of Fleischner criteria recommendations for follow- up of incidental CT nodules (Gerard Olivera, Guidelines for management of small pulmonary nodules detected on CT scans: A statement from the Fleischner Society, Radiology 237: [phone].) SOLID NODULES Solitary nodule size: <6 mm * Low risk patients: no follow-up needed * high risk patients: optional CT at 12 months Solitary nodule size: 6-8 mm * Low risk patients: follow-up at 6-12 months, then consider further follow-up at 18-24 months * high risk patients: initial follow-up CT at 6-12 months and then at 18-24 months if no change Solitary nodule size: >8 mm * either low or high risk patients - consider follow-up CT at 3 months, and/or CT-PET, and/or biopsy Multiple nodules size: <6 mm * Low risk patients: no routine follow-up * high risk patients: optional CT at 12 months Multiple nodules size: 6-8 mm * Low risk patients: follow-up at 3-6 months, then consider further follow-up at 18-24 months * high risk patients: follow-up at 3-6 months, then at 18-24 months if no change Multiple nodules size: >8 mm * Low risk patients: follow-up at 3-6 months, then consider further follow-up at 18-24 months * high risk patients: follow-up at 3-6 months, then at 18-24 months if no change Note: newly detected indeterminate nodule in persons 35 years of age or older. * Low risk patients: minimal or absent history of smoking and/or other known risk factors * high risk patients: history of smoking or of other known risk factors (e.g. first degree relative with lung cancer, or exposure to asbestos, radon, uranium) * if a nodule up to 8 mm is partly solid or is ground glass further follow-up is required after 24 months to exclude possible slow growing adenocarcinoma (TAMIKO) SUBSOLID NODULES Solitary pure ground-glass nodule * nodule size <6 mm - no CT follow-up required * nodule size >=6 mm - follow-up CT at 6-12 months, then every 2 years until 5 years Solitary part-solid nodule * nodule size <6 mm - no CT follow-up required * nodule size >=6 mm - follow-up CT at 3-6 months. If unchanged, and solid component remains <6 mm, then annual follow-up for 5 years Multiple subsolid nodules * nodule size <6 mm - follow-up CT at 3-6 months, consider further follow-up at 2 and 4 years if stable * nodule size >=6 mm - follow-up CT at 3-6 months, subsequent management based on the most suspicious nodule(s) ACT 112: Positive. There are findings on this exam that require communication between the performing entity and the patient following Patient Test Result Information Act ([place] Act 112) guidelines. Electronically signed by: Jan Swanson M.D. 03/28/2022 6:19 PM Code Status & VTE Plan Code Status full VTE Prophylaxis Plan VTE Prophylaxis will be ordered: Yes Supervising Physician Co-Signing Physician Notes Attending addendum: I have physically seen this patient, have supervised the medical residents activities, and agree with the H&P unless as otherwise noted. Assessment and Plan: Right lower lobe pulmonary embolus/pulmonary infarction- Lovenox 1 mg/kg subcu every 12 hours Order bilateral lower extremity venous duplex to assess for accompanying DVT and potential increased burden Troponin mildly increased at 20.5, suggesting possible right heart strain, follow serially Consult cardiology for follow-up and echocardiogram Hypercoagulable work-up Schizoaffective disorder- Significant differences between previously listed psychoactive medications versus what is listed on his transfer Working with nursing to attempt to clarify dosings For tonight, will give Seroquel 400 mg p.o. and Depakote ER 500 mg p.o. Medication list will need to be verified HAILEE Zyprexa 10 mg IM and lorazepam 2 mg IV if becomes agitated remaining orders and notations as noted Resident Activity Tracking Resident Involvement: Resident Care Provided Care Provided: Adult Hospital Medicine
[2022-03-28] MEDS ORDERED: ACETAMINOPHEN 1000 MG/100 ML IV IV STA (21:40)
[2022-03-28] MEDS ORDERED: ACETAMINOPHEN 1000 MG/100 ML IV IV ONE (21:42)
[2022-03-29] MEDS ORDERED: DOCUSATE SODIUM 100 MG CAP PO ONE (01:18)
[2022-03-29] MEDS ORDERED: DIVALPROEX EXTENDED RELEASE 500 MG TAB PO ONE ×2 (01:18→02:37)
[2022-03-29] MEDS ORDERED: QUEtiapine FUMARATE 200 MG TAB PO ONE (01:20)
[2022-03-29] MEDS ORDERED: QUEtiapine FUMARATE 200 MG TAB PO STA (02:36)
[2022-03-29 04:37] LABS: Hematocrit (blood only) 37.1 % (40.1-51.0); Hemoglobin 11.9 g/dl (14.0-18.0); Mean Corpuscular Hemoglobin 27.9 pg (25.0-34.0); Mean Corpuscular Hgb Conc 32.1 g/dL (32.0-36.0); Mean Corpuscular Volume 87.1 fL (80.0-100.0); Mean Platelet Volume 10.3 fL (9.4-12.4); Platelet Count 225 K/uL (130-400); RDW Coefficient of Variation 13.3 % (11.5-14.5); RDW Standard Deviation 42.2 fL (36.4-46.3); Red Blood Count 4.26 M/uL (4.63-6.08); White Blood Count 6.91 K/ul (4.8-10.8)
[2022-03-29 05:03] LABS: Calcium 8.4 mg/dl (8.5-10.1); Creatinine Clr Calc Pharmacy 160.6 ml/min; Est GFR (African American) 123.2 ml/min; Est GFR (Non-African American) 106.3 ml/min; Magnesium 1.9 mg/dl (1.7-2.4); Potassium 3.7 mmol/L (3.5-5.1)
[2022-03-29 05:04] LABS: Troponin I High Sensitivity 18.2 pg/ml (0-20)
[2022-03-29] MEDS: LEVOTHYROXINE SODIUM 25 MCG TABLET PO SCH (05:50)
[2022-03-29] MEDS: LEVOTHYROXINE SODIUM 100 MCG TABLET PO SCH (05:50)
[2022-03-29] MEDS: ACETAMINOPHEN 1000 MG/100 ML IV IV PRN ×2 (05:54→18:18)
[2022-03-29] MEDS ORDERED: LORazepam 2 MG in SYRINGE 1 ML IV STA (06:30)
[2022-03-29] MEDS ORDERED: OLANZapine 10 MG/2.1 ML SDV IM STA (06:30)
[2022-03-29] MEDS ORDERED: LORazepam 2 MG/1 ML VIAL ONE (06:42)
--- NOTE | 2022-03-29 07:28 | Ultrasound Report ---
BILATERAL LOWER EXTREMITY VENOUS DOPPLER CLINICAL HISTORY: Bilateral lower extremity swelling. Evaluate for deep venous thrombus. COMPARISON STUDY: No previous studies for comparison. TECHNIQUE: Sonography of the deep venous system of the bilateral lower extremities was performed. Co mpression and augmentation were evaluated. FINDINGS: The bilateral common femoral, superficial femoral and popliteal veins were compressible. A ugmentation was normal. Flow was shown within the deep calf vessels. IMPRESSION: No evidence of deep venous thrombus within the bilateral lower extremities. ACT 112: Negative or not required by law. Electronically signed by: Travis Krause M.D. 03/29/2022 7:27 AM
[2022-03-29] MEDS: ASPIRIN 81 MG ECTAB PO SCH (08:05)
[2022-03-29] MEDS: PANTOprazole 40 MG TAB PO SCH (08:05)
[2022-03-29] MEDS ORDERED: ENOXAPARIN INJ 120 MG/0.8 ML SYR SQ SCH (09:00)
--- NOTE | 2022-03-29 12:10 | XCELERA ---
[id number]
--- NOTE | 2022-03-29 12:17 | Cardiology Consultation ---
Date of Consultation March 29, 2022 Assessment & Plan (1) Chest pain: (2) Elevated troponin: (3) Pulmonary embolism: Plan 1. Chest pain: This seems atypical. He has 2 kinds of chest pain. Neither appear to be associated with exertion. Both can be prolonged in nature. He seems to have had the symptoms for few weeks without any objective evidence of ischemia. He has had 2 echocardiograms in several evaluations of cardiac biomarkers none of which are suggestive of an acute coronary syndrome or cardiac disease. His left-sided chest pain is also reproducible on palpation. No alternative explanation would be pulmonary embolus and infarct which was suggested on his CTA. In any event, I do not believe he requires any additional cardiac testing based on the symptoms. I would recommend standard cardiac risk factor modification according to published guidelines. 2. Troponin: He had 1 troponin that was just over the limit of normal. The remainder have been normal. 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 I would not recommend additional testing based on this alone. 3. Pulmonary embolus: Suggested on his recent CTA. He seems quite comfortable at rest now. Unclear this is responsible for any of his chest pain symptoms. Oxygenating well. No evidence of right heart strain on echocardiogram. Started on Lovenox. History of Present Illness Reason for Consultation: Chest pain Requesting Physician: Jos Attending Physician: Alfred Gerber MD History of Present Illness The patient is a 61-year-old gentleman admitted 1 month ago with symptoms of atypical chest pain. He presents to the emergency room for complaints of atypical chest pain. His the patient does have unusual manner of speaking. He also appears to be a poor historian overall. However, he does recall fairly frequent episodes of chest discomfort which had been occurring for several weeks. There appeared to be 2 different kinds of chest pains. One kind involves the right lateral chest and is worse when sleeping at nighttime. Another symptom involves the left precordium which is worse with deep inspiration or pressure. He often describes the symptoms as stabbing or jabbing. They do not appear to be associated with activity. They are often very brief in nature but can be prolonged as well. He appears to be a sedentary individual but apparently walks frequently around his facility. He does not report symptoms of this nature with walking. He denies limiting shortness of breath or shortness of breath at other times. He did not appear to have symptoms of dizziness or lightheadedness. At 1 point in the interview he stated that he was having his chest pain 10/10. At another point in the interview he claims to be feeling well and was eating lunch. Allergies Allergy/AdvReac Type Severity Reaction Status Date / Time oxazepam Allergy Unknown Unknown Unverified 03/29/22 02:09 adhesive tape Allergy Unknown Unverified 03/29/22 02:09 bee venom protein (honey bee) Allergy Unknown Unverified 03/29/22 02:09 chlorpromazine Allergy Unknown Unverified 03/29/22 02:09 [From Thorazine] latex Allergy Unknown Unverified 03/29/22 02:09 propranolol [From Inderal LA] Allergy Unknown Unverified 03/29/22 02:09 Home Medications Medication Instructions Recorded Confirmed Type aluminum-mag hydroxide-simethicone 30 ml PO QID PRN Gastric Reflux 09/02/21 03/28/22 History 200 mg-200 mg-20 mg/5 mL oral susp aspirin 81 mg chewable tablet 81 mg PO QAM 09/02/21 03/29/22 History atorvastatin 10 mg tablet 10 mg PO HS 09/02/21 03/29/22 History benzocaine 15 mg-menthol 3.6 mg 2 ambrocio mucous membrane Q2H PRN Sore 09/02/21 03/28/22 History lozenges Throat cholecalciferol (vitamin D3) 25 25 mcg PO QAM 09/02/21 03/29/22 History mcg (1,000 unit) tablet docusate sodium 100 mg capsule 200 mg PO BID 09/02/21 03/29/22 History epinephrine 0.3 mg/0.3 mL 0.3 mg IM UD PRN Allergic Reaction 09/02/21 03/28/22 History injection, auto-injector (EpiPen) fluticasone propionate 50 1 spray intranasal BID 09/02/21 03/28/22 History mcg/actuation nasal spray,suspension guaifenesin 600 mg tablet, 600 mg PO BID 09/02/21 03/28/22 History extended release 12 hr (Mucinex) levothyroxine 100 mcg tablet 100 mcg PO DAILY@0700 09/02/21 03/29/22 History levothyroxine 25 mcg tablet 25 mcg PO DAILY@0700 09/02/21 03/29/22 History multivitamin 1 tab PO QAM 09/02/21 03/29/22 History omega-3 fatty acids 1,000 mg 1,000 mg PO DAILY 09/02/21 03/29/22 History capsule pantoprazole 40 mg tablet,delayed 40 mg PO QAM 09/02/21 03/29/22 History release phenylephrine 0.25 %-pramoxine 1 1 applic MT TID PRN Hemorrhoids 09/02/21 03/28/22 History %-glycerin-wh.petrolatum rectal cream (Hemorrhoidal Cream) polyethylene glycol 3350 17 17 g PO 3XWK 09/02/21 03/29/22 History gram/dose oral powder sennosides 8.6 mg tablet (senna) 8.6 mg PO HS 02/13/22 03/28/22 History acetaminophen 325 mg tablet 650 mg PO Q4 PRN Pain 03/29/22 03/29/22 History (Tylenol) artificial tears with lanolin eye 1 applic ophthalmic (eye) Q4 PRN 03/29/22 03/29/22 History ointment .EYE DISCOMFORT ascorbic acid (vitamin C) 500 mg 500 mg PO DAILY 03/29/22 03/29/22 History tablet (Vitamin C) calcium carbonate 200 mg calcium 0 mg PO DIRECTED 03/29/22 03/29/22 History (500 mg) chewable tablet (Antacid (calcium carbonate)) donepezil 5 mg tablet 10 mg PO HS 03/29/22 03/29/22 History gabapentin 300 mg capsule 300 mg PO TID 03/29/22 03/29/22 History lidocaine 4 % topical patch 1 patch topical .REMOVE HS PRN .. 03/29/22 03/29/22 History lidocaine 4 % topical patch 1 patch topical DAILY PRN Pain 03/29/22 03/29/22 History montelukast 10 mg tablet 10 mg PO DAILY 03/29/22 03/29/22 History quetiapine 100 mg tablet (Seroquel) 100 mg PO BID 03/29/22 03/29/22 History quetiapine 200 mg tablet (Seroquel) 400 mg PO HS 03/29/22 03/29/22 History quetiapine 50 mg tablet (Seroquel) 50 mg PO .Q30MIN PRN .SEVERE 03/29/22 03/29/22 History AGGITATION Patient History Medical History Atypical chest pain Chest pain COVID-19 Dizziness GERD (gastroesophageal reflux disease) Hyperlipidemia Hypothyroid Psychiatric disorder Schizo affective schizophrenia Social History Smoking Status: Never smoker Tobacco Type: Cigarettes Hx Alcohol Use: No Hx Substance Use: No Preferred Language: Eritrean Communication Ability: Effective Web Ui Developer Required: No Beliefs That Will Affect Care: None Current Living Situation: Other Current Living Situation Comment: [place] How many Children do You have: 0 Feels Safe at Home: Yes Safety Concerns: Feels Safe At This Time Assistive Devices: None Review of Systems Review of Systems: Per HPI. Physical Exam Physical Exam: The patient is alert and oriented. Mood and affect appeared normal. He answered all questions appropriately. HEENT: Pupils are equal and reactive to light and accommodation. Extraocular movements are intact. The sclerae are anicteric. Neuro: Cranial nerves intact Lungs: Clear to auscultation bilaterally. He has good air movement without use of accessory muscles. No rales wheezes or rhonchi. Chest: Some tenderness in the left precordium with palpation. Cardiac: Heart demonstrates a regular rate and rhythm. Normal S1 and S2. No murmurs on examination. Pulses: The patient has palpable radial pulses bilaterally that are equal in intensity Extremities: There was no evidence of hypoperfusion. There is no cyanosis or clubbing. There is no edema. Skin: I did not appreciate any rashes on examination today. Results & Data ([facility]) Vital Signs (Past 12 Hours) Vital Signs Temp Pulse Pulse Resp BP Pulse Ox O2 Del Method 03/29/22 10:28 61 18 147/73 H 97 Room Air 03/29/22 06:31 36.6 C 66 16 166/91 H 98 Room Air 03/29/22 03:30 03/29/22 04:00 69 17 116/56 L 98 CPAP 03/29/22 02:14 60 18 99 03/29/22 02:00 54 L 18 129/75 99 Room Air 03/29/22 01:23 59 L 03/29/22 01:22 60 14 151/72 H 98 Room Air 03/29/22 00:38 98 Room Air O2 Flow Rate FiO2 03/29/22 10:28 03/29/22 06:31 03/29/22 03:30 2 03/29/22 04:00 03/29/22 02:14 21 03/29/22 02:00 03/29/22 01:23 03/29/22 01:22 03/29/22 00:38 Laboratory Results Abnormal Lab Results 03/28/22 03/28/22 03/28/22 15:10 15:10 15:10 WBC 8.02 RBC 4.20 L Hgb 11.9 L Hct 36.4 L MCV 86.7 MCH 28.3 MCHC 32.7 RDW Std Deviation 41.5 RDW Coeff of [place] 13.3 Plt Count 254 MPV 10.6 Immature Gran % (Auto) 0.1 Neut % (Auto) 71.8 Lymph % (Auto) 17.1 [place] % (Auto) 9.2 Eos % (Auto) 1.4 Baso % (Auto) 0.4 Neut # (Auto) 5.76 Lymph # (Auto) 1.37 [place] # (Auto) 0.74 Eos # (Auto) 0.11 Baso # (Auto) 0.03 Immature Gran # (Auto) 0.01 PT Cancelled INR Cancelled APTT Cancelled PTT Ratio Cancelled D-Dimer Cancelled Cancelled Sodium Potassium Chloride Carbon Dioxide Anion Gap BUN Creatinine Est Cr Clr Drug Dosing Est GFR ( Amer) Est GFR (Non-Af Amer) BUN/Creatinine Ratio Glucose Calcium Magnesium Total Bilirubin AST ALT Alkaline Phosphatase Troponin I High Sens Total Protein Albumin Globulin Albumin/Globulin Ratio Lipase Urine Color Urine Appearance Urine pH Ur Specific [place] Urine Protein Urine Glucose (UA) Urine Ketones Urine Blood Urine Nitrite Urine Bilirubin Urine Urobilinogen Ur Leukocyte Esterase Urine RBC Urine WBC Ur Epithelial Cells Urine Bacteria SARS-CoV-2, RNA, NAAT 03/28/22 03/28/22 03/28/22 15:10 15:15 16:55 WBC RBC Hgb Hct MCV MCH MCHC RDW Std Deviation RDW Coeff of [place] Plt Count MPV Immature Gran % (Auto) Neut % (Auto) Lymph % (Auto) [place] % (Auto) Eos % (Auto) Baso % (Auto) Neut # (Auto) Lymph # (Auto) [place] # (Auto) Eos # (Auto) Baso # (Auto) Immature Gran # (Auto) PT 11.0 INR 1.0 APTT 25.1 PTT Ratio 0.9 D-Dimer 1390 H* Sodium 137 Potassium 3.7 Chloride 104 Carbon Dioxide 26 Anion Gap 7 BUN 14 Creatinine 0.74 Est Cr Clr Drug Dosing 132.4 Est GFR ( Amer) 113.8 Est GFR (Non-Af Amer) 98.2 BUN/Creatinine Ratio 18.9 Glucose 126 H Calcium 9.0 Magnesium Total Bilirubin 0.5 AST 35 ALT 23 Alkaline Phosphatase 83 Troponin I High Sens 20.5 H D Total Protein 6.2 Albumin 3.9 Globulin 2.3 L Albumin/Globulin Ratio 1.7 Lipase 57 Urine Color Yellow Urine Appearance Clear Urine pH 7.5 Ur Specific [place] 1.002 Urine Protein Negative Urine Glucose (UA) Negative Urine Ketones Negative Urine Blood Trace H Urine Nitrite Negative Urine Bilirubin Negative Urine Urobilinogen Negative Ur Leukocyte Esterase Negative Urine RBC 0-4 Urine WBC 0-5 Ur Epithelial Cells 0-5 Urine Bacteria Negative SARS-CoV-2, RNA, NAAT 03/28/22 03/29/22 03/29/22 20:18 04:26 04:26 WBC 6.91 RBC 4.26 L Hgb 11.9 L Hct 37.1 L MCV 87.1 MCH 27.9 MCHC 32.1 RDW Std Deviation 42.2 RDW Coeff of [place] 13.3 Plt Count 225 MPV 10.3 Immature Gran % (Auto) Neut % (Auto) Lymph % (Auto) [place] % (Auto) Eos % (Auto) Baso % (Auto) Neut # (Auto) Lymph # (Auto) [place] # (Auto) Eos # (Auto) Baso # (Auto) Immature Gran # (Auto) PT INR APTT PTT Ratio D-Dimer Sodium 138 Potassium 3.7 Chloride 105 Carbon Dioxide 26 Anion Gap 7 BUN 14 Creatinine 0.61 Est Cr Clr Drug Dosing 160.6 Est GFR ( Amer) 123.2 Est GFR (Non-Af Amer) 106.3 BUN/Creatinine Ratio 23.0 H Glucose 104 H Calcium 8.4 L Magnesium 1.9 Total Bilirubin AST ALT Alkaline Phosphatase Troponin I High Sens 18.2 Total Protein Albumin Globulin Albumin/Globulin Ratio Lipase Urine Color Urine Appearance Urine pH Ur Specific [place] Urine Protein Urine Glucose (UA) Urine Ketones Urine Blood Urine Nitrite Urine Bilirubin Urine Urobilinogen Ur Leukocyte Esterase Urine RBC Urine WBC Ur Epithelial Cells Urine Bacteria SARS-CoV-2, RNA, NAAT NEGATIVE 03/29/22 06:52 WBC RBC Hgb Hct MCV MCH MCHC RDW Std Deviation RDW Coeff of [place] Plt Count MPV Immature Gran % (Auto) Neut % (Auto) Lymph % (Auto) [place] % (Auto) Eos % (Auto) Baso % (Auto) Neut # (Auto) Lymph # (Auto) [place] # (Auto) Eos # (Auto) Baso # (Auto) Immature Gran # (Auto) PT INR APTT PTT Ratio D-Dimer Sodium Potassium Chloride Carbon Dioxide Anion Gap BUN Creatinine Est Cr Clr Drug Dosing Est GFR ( Amer) Est GFR (Non-Af Amer) BUN/Creatinine Ratio Glucose Calcium Magnesium Total Bilirubin AST ALT Alkaline Phosphatase Troponin I High Sens 14.0 D Total Protein Albumin Globulin Albumin/Globulin Ratio Lipase Urine Color Urine Appearance Urine pH Ur Specific [place] Urine Protein Urine Glucose (UA) Urine Ketones Urine Blood Urine Nitrite Urine Bilirubin Urine Urobilinogen Ur Leukocyte Esterase Urine RBC Urine WBC Ur Epithelial Cells Urine Bacteria SARS-CoV-2, RNA, NAAT Diagnostic Findings Echocardiogram obtained today revealed normal LV systolic function wall motion. No evidence of right heart strain. No significant valvular heart disease. Essentially unchanged from echocardiogram obtained 1 month ago. Chest CTA performed yesterday suggestive of a PE in the right lower lobe. Healed right rib fractures. No pneumothorax. ECG Additional Comments: EKG demonstrated normal sinus rhythm with left bundle branch block. PG Care Time/CCT Total # of Minutes Spent Total Time Spent with Patient: Total time spent is greater than 50% in coordination of care (as documented) at patient's floor/unit and/or counseling patient: Coding Level of Care Code 51173 Office/OBS Consult Lvl 4 Diagnoses Chest pain R07.9 Chest pain type: unspecified Elevated troponin R77.8 Pulmonary embolism I26.99 Acute cor pulmonale presence: unspecified Chronicity: acute Pulmonary embolism type: unspecified (1) Chest pain Chest pain type: unspecified Qualified Code(s): R07.9 - Chest pain, unspecified (2) Pulmonary embolism Acute cor pulmonale presence: unspecified Chronicity: acute Pulmonary embolism type: unspecified Qualified Code(s): I26.99 - Other pulmonary embolism without acute cor pulmonale
--- NOTE | 2022-03-29 15:19 | Electrocardiogram Report ---
Test Reason : Blood Pressure : / mmHG Vent. Rate : 065 BPM Atrial Rate : 065 BPM P-R Int : 156 ms QRS Dur : 142 ms QT Int : 472 ms P-R-T Axes : 062 013 074 degrees QTc Int : 490 ms Normal sinus rhythm Left bundle branch block Abnormal ECG When compared with ECG of 28-MAR-2022 15:40, No significant change was found Confirmed by Sean Olivo ([id number]) on 03/29/2022 3:18:58 PM Referred By: REFERRED SELF Confirmed By:Deric Olivo
--- NOTE | 2022-03-29 15:19 | Electrocardiogram Report ---
Test Reason : Blood Pressure : / mmHG Vent. Rate : 061 BPM Atrial Rate : 061 BPM P-R Int : 156 ms QRS Dur : 142 ms QT Int : 454 ms P-R-T Axes : 036 030 066 degrees QTc Int : 457 ms Sinus rhythm with Premature atrial complexes Left bundle branch block Abnormal ECG When compared with ECG of 29-MAR-2022 06:17, (unconfirmed) Premature atrial complexes are now Present Confirmed by Sean Olivo ([id number] on 03/29/2022 3:19:33 PM Referred By: REFERRED SELF Confirmed By:Deric Olivo
--- NOTE | 2022-03-29 16:16 | Hospitalist Progress Note ---
Date of Service March 29, 2022 Assessment & Plan (1) Left-sided chest pain: Plan: Atypical chest pain, reproducible most likely musculoskeletal in nature, also PE could be contributing EKG did not show any ST changes Trop wnl 2 d ECHO did not show any wall motion abnormalitis Evaluated by cardiology, no further work up needed (2) Embolism, pulmonary with infarction: Plan: Found to have PE on CTA No evidence of DVT on Duplex No evidence of right ventricular heart strain on ECHO Started on therapeutic Lovenox, now transitioned to Eliquis (3) Multiple rib fractures involving four or more ribs: Plan: Old right rib fracture seen on x ray (4) Schizoaffective disorder: Plan: His home medications are yet to be reconciled will order when available continue prn zyprexa for agitation Plan hopefully d/c in the next 24 hrs Admission and Anticipated Discharge Date Admission Date: March 28, 2022 Subjective patient seen and examined, complains of mild chest pain Review of Systems Review of Systems: All systems reviewed are negative, apart from the ones contained in the history. Physical Exam Physical Exam: The patient is awake, alert and oriented 3, well developed and well nourished, normocephalic and atraumatic, lying in bed and in no acute distress. HEENT--PERRL, EOMI, mucous membranes and oropharynx mildly dry Neck--supple. No JVD. No bruits. Thyroid normal, trachea midline, no adenopathy. Heart--normal S1 and S2. No murmurs, rubs or gallops. Lungs--clear bilaterally, no respiratory distress, no accessory muscle use. Abdomen--normal bowel sounds and soft. Mild epigastric and left sided abdominal pain Extremities--no cyanosis or clubbing. No edema. Dermatologic--normal skin turgor, normal color, no abnormal lymph nodes, no rash. Neurologic--cranial nerves II through XII grossly intact. Rheumatologic--normal range of motion. Psychiatric--normal affect. Results & Data Results & Data ([facility]) Vital Signs (Past 12 Hours) Vital Signs Temp Pulse Resp BP Pulse Ox O2 Del Method 03/29/22 10:28 61 18 147/73 H 97 Room Air 03/29/22 06:31 97.9 F 66 16 166/91 H 98 Room Air PG Care Time/CCT Total # of Minutes Spent Total Time Spent with Patient: Total time spent is greater than 50% in coordination of care (as documented) at patient's floor/unit and/or counseling patient: Coding Level of Care Code 82972 Subseq Hosp Care Lvl 2 Diagnoses Left-sided chest pain R07.9 Embolism, pulmonary with infarction I26.99 Multiple rib fractures involving four or more ribs S22.49XA Schizoaffective disorder F25.9 Time Spent (min) 35
[2022-03-29] MEDS: OLANZapine 10 MG/2.1 ML SDV IM PRN (19:49)
[2022-03-29] MEDS ORDERED: SENNA 8.6 MG TAB PO PRN (20:05)
[2022-03-29] MEDS ORDERED: QUEtiapine FUMARATE 25 MG TABLET PO PRN (20:05)
[2022-03-29] MEDS ORDERED: QUEtiapine FUMARATE 100 MG TABLET PO SCH (21:00)
[2022-03-29] MEDS: DOCUSATE SODIUM 100 MG CAP PO SCH (21:04)
[2022-03-29] MEDS: QUEtiapine FUMARATE 200 MG TAB PO SCH (21:05)
[2022-03-29] MEDS: ATORVASTATIN 10 MG TAB PO SCH (21:05)
[2022-03-29] MEDS: APIXABAN 5 MG TABLET PO SCH (21:05)
--- NOTE | 2022-03-29 21:11 | Billing Data ---
Date of Service March 29, 2022 Coding Level of Care Code 54495 Initial Inpt Care Lvl 3
[2022-03-29] MEDS ORDERED: LORazepam 1 MG in SYRINGE 0.5 ML IV STA (22:01)
[2022-03-30] MEDS ORDERED: HALOPERIDOL LACTATE 5 MG/ML 1 ML VIAL IM STA (01:52)
[2022-03-30] MEDS ORDERED: LORazepam 2 MG in SYRINGE 1 ML IV STA (02:05)
--- NOTE | 2022-03-30 03:16 | Communication Note ---
Date of Service: March 30, 2022 Patient had been agitated and verbally aggressive earlier in the night. He had complained of left-sided chest pain, for which I ordered an EKG and troponin. These showed no immediately concerning findings, troponin was normal. He had received a dose of previously ordered as needed Zyprexa with minimal response, and I ordered dose of 1 mg Ativan. This calmed patient down for a few hours. However, RN states that patient started getting agitated again due to CPAP mask and CPAP alarms going off. At that time, he began to get more verbally aggres sive and also began to attempt to strike nursing/staff. I went up to evaluate the patient, at which point multiple staff members were in the room. Patient got progressively more agitated to the point where a code hussein was called and security presented to the room. Patient continued to yell, thrash, and also threw objects across the room at staff members. He was given a dose of Haldol 10 mg IM and Ativan 2 mg IV. Within several minutes, the patient did calm down significantly. He was given some ice cream, which she had requested. Elected not to utilize limb restraints at the time, as patient had calm down. Discussed with RN that if patient did get combative again, we could consider further doses of Ativan. I did place an order for Ativan 1 mg IV every 8 hours as needed for agitation/anxiety. I asked the nurse to let me know before giving any medications, specifically the as needed Zyprexa, as patient's most recent EKG showed somewhat prolonged QTC at 477. After the dose of Haldol, I did verify that his telemetry monitoring showed sinus rhythm in the 70s. We will continue to monitor.
[2022-03-30] MEDS: ACETAMINOPHEN 1000 MG/100 ML IV IV PRN ×2 (04:29→21:58)
[2022-03-30] MEDS: LEVOTHYROXINE SODIUM 25 MCG TABLET PO SCH (04:49)
[2022-03-30] MEDS: LEVOTHYROXINE SODIUM 100 MCG TABLET PO SCH (04:49)
[2022-03-30] MEDS: ASPIRIN 81 MG ECTAB PO SCH (08:00)
[2022-03-30] MEDS: PANTOprazole 40 MG TAB PO SCH (08:00)
[2022-03-30] MEDS: APIXABAN 5 MG TABLET PO SCH ×2 (08:00→20:15)
[2022-03-30] MEDS: DOCUSATE SODIUM 100 MG CAP PO SCH ×2 (08:00→20:14)
--- NOTE | 2022-03-30 09:22 | Electrocardiogram Report ---
Test Reason : Blood Pressure : / mmHG Vent. Rate : 067 BPM Atrial Rate : 067 BPM P-R Int : 156 ms QRS Dur : 142 ms QT Int : 452 ms P-R-T Axes : 072 064 -75 degrees QTc Int : 477 ms Normal sinus rhythm Left bundle branch block Nonspecific T wave abnormality Inferior leads Abnormal ECG When compared with ECG of 29-MAR-2022 08:39, Premature atrial complexes are no longer Present T wave inversion now evident in Inferior leads Confirmed by Noman Esposito ([id number]) on 03/30/2022 9:22:13 AM Referred By: REFERRED SELF Confirmed By:Noman Esposito
[2022-03-30] MEDS: LORazepam 1 MG in SYRINGE 0.5 ML IV PRN ×2 (11:22→20:13)
[2022-03-30] MEDS ORDERED: CALCIUM CARBONATE 500 MG CHEWABLE TAB PO ONE (13:21)
[2022-03-30] MEDS ORDERED: CALCIUM CARBONATE 500 MG CHEWABLE TAB ONE (13:22)
--- NOTE | 2022-03-30 15:54 | Hospitalist Progress Note ---
Date of Service March 30, 2022 Assessment & Plan (1) Pulmonary embolism and infarction: Plan: 61 year old male w/ schizoaffective disorder, hypothyroidism, GERD, HLD who presents from [facility] ([facility]) w/ chest pain since yesterday 9 AM. He had similar presentation last admission to [facility] 02/13/22-02/15/22. - CTA PE w/ possible RLL posterior basal segmental/subsegmental PE w/ subsegmental atelectasis vs small pulmonary infarct. - PESI 73 points. Class II, Low Risk: 1.7-3.5% 30-day mortality in this group. - Now transitioned to PO Eliquis 10mg BID for 7 days and then later 5mg BID - venous duplex BLE negative for DVT - No evidence of right heart strain on ECHO (2) Left-sided chest pain: Plan: - reproducible, similar to 02/13/22 [facility] admission's presentation - now resolved - repeat trop - echo as above. would check for pericarditis - more likely msk chest wall pain. location is not at rib fractures or right sided PE/pulm infarct. - prn IV tylenol for now (3) Schizoaffective disorder: Plan: w/ severe intermittent agitation at baseline. - Resumed home meds (4) Multiple rib fractures involving four or more ribs: Plan: - noted on CTA chest. no flail chest on exam. pain is minimal. monitor (5) Hyperlipidemia: Plan: - continue home statin (6) GERD (gastroesophageal reflux disease): Plan: - continue home PPI (7) Hypothyroid: Plan: - continue home levothyroxine (8) Elevated troponin: Plan: - repeat in AM Plan D/C to [facility] when accepted Diet, fluids: regular diet. no fluids anticoag: therapeutic lovenox code: full, confirmed w/ patient dispo: med tele. Admission and Anticipated Discharge Date Admission Date: March 28, 2022 Subjective patient seen and examined, no new complaints, ambulating the [address] Review of Systems Review of Systems: All systems reviewed are negative, apart from the ones contained in the history. Physical Exam Physical Exam: The patient is awake, alert and oriented 3, well developed and well nourished, normocephalic and atraumatic, lying in bed and in no acute distress. HEENT--PERRL, EOMI, mucous membranes and oropharynx mildly dry Neck--supple. No JVD. No bruits. Thyroid normal, trachea midline, no adenopathy. Heart--normal S1 and S2. No murmurs, rubs or gallops. Lungs--clear bilaterally, no respiratory distress, no accessory muscle use. Abdomen--normal bowel sounds and soft. Mild epigastric and left sided abdominal pain Extremities--no cyanosis or clubbing. No edema. Dermatologic--normal skin turgor, normal color, no abnormal lymph nodes, no rash. Neurologic--cranial nerves II through XII grossly intact. Rheumatologic--normal range of motion. Psychiatric--normal affect. Results & Data Results & Data ([facility]) Vital Signs (Past 12 Hours) Vital Signs Temp Pulse Pulse Resp BP Pulse Ox 03/30/22 15:19 98.2 F 81 20 150/92 H 93 03/30/22 10:58 98.8 F 63 20 156/77 H 95 03/30/22 08:00 57 L 03/30/22 07:53 98.2 F 57 L 20 147/87 H 97 PG Care Time/CCT Total # of Minutes Spent Total Time Spent with Patient: Total time spent is greater than 50% in coordination of care (as documented) at patient's floor/unit and/or counseling patient: Coding Level of Care Code 87363 Subseq Hosp Care Lvl 2 Diagnoses Pulmonary embolism and infarction I26.99 Left-sided chest pain R07.9 Schizoaffective disorder F25.9 Multiple rib fractures involving four or more ribs S22.49XA Hyperlipidemia E78.5 GERD (gastroesophageal reflux disease) K21.9 Hypothyroid E03.9 Elevated troponin R77.8 Time Spent (min) 35
[2022-03-30] MEDS ORDERED: CALCIUM CARBONATE 500 MG CHEWABLE TAB PO PRN (18:00)
[2022-03-30] MEDS ORDERED: MoRPHine SULFATE 2 MG/ML CARP ONE (18:24)
[2022-03-30] MEDS ORDERED: MoRPHine SULFATE 2 MG/ML CARP IV STA (18:29)
[2022-03-30] MEDS ORDERED: Nursing to Pharmacy Communication SCH (18:30)
[2022-03-30] MEDS: QUEtiapine FUMARATE 200 MG TAB PO SCH (20:14)
[2022-03-30] MEDS: DONEPEZIL HCL 10 MG TAB PO SCH (20:14)
[2022-03-30] MEDS: ATORVASTATIN 10 MG TAB PO SCH (20:15)
[2022-03-31] MEDS: LEVOTHYROXINE SODIUM 25 MCG TABLET PO SCH (03:51)
[2022-03-31] MEDS: LEVOTHYROXINE SODIUM 100 MCG TABLET PO SCH (03:51)
[2022-03-31] MEDS: LORazepam 1 MG in SYRINGE 0.5 ML IV PRN ×3 (04:22→21:38)
[2022-03-31] MEDS: DOCUSATE SODIUM 100 MG CAP PO SCH ×2 (08:12→20:03)
[2022-03-31] MEDS: PANTOprazole 40 MG TAB PO SCH (08:12)
[2022-03-31] MEDS: APIXABAN 5 MG TABLET PO SCH ×2 (08:12→20:04)
[2022-03-31] MEDS: ASPIRIN 81 MG ECTAB PO SCH (08:12)
--- NOTE | 2022-03-31 08:57 | Electrocardiogram Report ---
Test Reason : Blood Pressure : / mmHG Vent. Rate : 056 BPM Atrial Rate : 056 BPM P-R Int : 160 ms QRS Dur : 146 ms QT Int : 460 ms P-R-T Axes : 038 036 073 degrees QTc Int : 443 ms Sinus bradycardia Left bundle branch block Abnormal ECG When compared with ECG of 29-MAR-2022 21:49, T wave inversion no longer evident in Inferior leads Confirmed by Noman Esposito ([id number]) on 03/31/2022 8:57:17 AM Referred By: REFERRED SELF Confirmed By:Noman Esposito
--- NOTE | 2022-03-31 12:56 | Ultrasound Report ---
US venous doppler UE LT HISTORY: 61 years-old Male swelling acute pain and swelling of the left upper extremity COMPARISON: None TECHNIQUE: Multiple real-time sonographic images of the left upper extremity deep venous structures w ere obtained assessing grayscale appearance, color and spectral flow FINDINGS: Normal flow, compressibility and phasicity. There is a crescentic hypoechoic focus within the soft ti ssues adjacent to the wrist, 4.1 x 2.3 x 1.6 cm with reported subcutaneous bruising. No definitive co kenny flow within this lesion. IMPRESSION: 1. No DVT. 2. Probable hematoma of the left wrist soft tissues. Correlate with clinical exam findings. ACT 112: Negative or not required by law. The above report was generated using voice recognition software. It may contain grammatical, syntax o r spelling errors. Electronically signed by: Fabricio Dupree M.D. 03/31/2022 12:54 PM
[2022-03-31] MEDS: OLANZapine 10 MG/2.1 ML SDV IM PRN ×2 (14:30→23:17)
[2022-03-31] MEDS: ACETAMINOPHEN 1000 MG/100 ML IV IV PRN (14:55)
[2022-03-31] MEDS ORDERED: QUEtiapine FUMARATE 100 MG TABLET PO ONE (15:35)
--- NOTE | 2022-03-31 16:02 | Hospitalist Progress Note ---
Date of Service March 31, 2022 Assessment & Plan (1) Pulmonary embolism and infarction: Plan: 61 year old male w/ schizoaffective disorder, hypothyroidism, GERD, HLD who [facility] w/ chest pain since yesterday 9 AM. He had similar presentation last admission to [facility] 02/13/22-02/15/22. - CTA PE w/ possible RLL posterior basal segmental/subsegmental PE w/ subsegmental atelectasis vs small pulmonary infarct. - PESI 73 points. Class II, Low Risk: 1.7-3.5% 30-day mortality in this group. - Now transitioned to PO Eliquis 10mg BID for 7 days and then later 5mg BID - venous duplex BLE negative for DVT - No evidence of right heart strain on ECHO (2) Left-sided chest pain: Plan: - reproducible, similar to 02/13/22 [facility] admission's presentation - now resolved - repeat trop - echo as above. would check for pericarditis - more likely msk chest wall pain. location is not at rib fractures or right sided PE/pulm infarct. - prn IV tylenol for now (3) Schizoaffective disorder: Plan: w/ severe intermittent agitation at baseline. - Resumed home meds (4) Multiple rib fractures involving four or more ribs: Plan: - noted on CTA chest. no flail chest on exam. pain is minimal. monitor (5) Hyperlipidemia: Plan: - continue home statin (6) GERD (gastroesophageal reflux disease): Plan: - continue home PPI (7) Hypothyroid: Plan: - continue home levothyroxine (8) Elevated troponin: Plan: - repeat in AM (9) Hematoma: Plan: left upper extremity hematoma probably caused by IV access NO evidence of DVT on duplex Plan D/C to [facility] when accepted Diet, fluids: regular diet. no fluids anticoag: therapeutic lovenox code: full, confirmed w/ patient dispo: med tele. Admission and Anticipated Discharge Date Admission Date: March 28, 2022 Subjective patient seen and examined, no new complaints, ambulating the [address] way, complained of a swelling on the left lower arm Review of Systems Review of Systems: All systems reviewed are negative, apart from the ones contained in the history. Physical Exam Physical Exam: The patient is awake, alert and oriented 3, well developed and well nourished, normocephalic and atraumatic, lying in bed and in no acute distress. HEENT--PERRL, EOMI, mucous membranes and oropharynx mildly dry Neck--supple. No JVD. No bruits. Thyroid normal, trachea midline, no adenopathy. Heart--normal S1 and S2. No murmurs, rubs or gallops. Lungs--clear bilaterally, no respiratory distress, no accessory muscle use. Abdomen--normal bowel sounds and soft. Mild epigastric and left sided abdominal pain Extremities--no cyanosis or clubbing. No edema. Dermatologic--normal skin turgor, normal color, no abnormal lymph nodes, no rash. Neurologic--cranial nerves II through XII grossly intact. Rheumatologic--normal range of motion. Psychiatric--normal affect. Results & Data Results & Data ([facility]) Vital Signs (Past 12 Hours) Vital Signs Temp Pulse Resp BP Pulse Ox O2 Del Method 03/31/22 14:52 97.9 F 69 20 161/81 H 96 Room Air 03/31/22 11:24 98.1 F 60 20 152/89 H 97 Room Air 03/31/22 07:26 98.1 F 62 20 157/96 H 96 Room Air PG Care Time/CCT Total # of Minutes Spent Total Time Spent with Patient: Total time spent is greater than 50% in coordination of care (as documented) at patient's floor/unit and/or counseling patient: Coding Level of Care Code 83659 Subseq Hosp Care Lvl 2 Diagnoses Pulmonary embolism and infarction I26.99 Left-sided chest pain R07.9 Schizoaffective disorder F25.9 Multiple rib fractures involving four or more ribs S22.49XA Hyperlipidemia E78.5 GERD (gastroesophageal reflux disease) K21.9 Hypothyroid E03.9 Elevated troponin R77.8 Hematoma T14.8XXA Time Spent (min) 35
[2022-03-31] MEDS ORDERED: POLYETHYLENE (MIRALAX) 17 GM PACK PO PRN (19:59)
[2022-03-31] MEDS: QUEtiapine FUMARATE 200 MG TAB PO SCH (20:03)
[2022-03-31] MEDS: ATORVASTATIN 10 MG TAB PO SCH (20:03)
[2022-03-31] MEDS: DONEPEZIL HCL 10 MG TAB PO SCH (20:04)
[2022-03-31] MEDS ORDERED: KETOROLAC TROMETHAMINE 15 MG/ML VIAL IV ONE (20:55)
[2022-03-31] MEDS ORDERED: OLANZapine 10 MG/2.1 ML SDV IM PRN (23:01)
[2022-04-01] MEDS: ACETAMINOPHEN 1000 MG/100 ML IV IV PRN (03:34)
[2022-04-01] MEDS: LORazepam 1 MG in SYRINGE 0.5 ML IV PRN (03:56)
[2022-04-01] MEDS ORDERED: QUEtiapine FUMARATE 25 MG TABLET PO ONE (05:45)
[2022-04-01] MEDS ORDERED: ACETAMINOPHEN 500 MG TAB PO PRN (06:03)
[2022-04-01] MEDS ORDERED: ACETAMINOPHEN 500 MG TAB ONE (06:05)
[2022-04-01] MEDS ORDERED: LORazepam 1 MG in SYRINGE 0.5 ML IV STA (06:06)
[2022-04-01] MEDS: LEVOTHYROXINE SODIUM 100 MCG TABLET PO SCH (06:46)
[2022-04-01] MEDS: LEVOTHYROXINE SODIUM 25 MCG TABLET PO SCH (06:46)
[2022-04-01 08:29] LABS: Hematocrit (blood only) 39.3 % (40.1-51.0); Hemoglobin 13.1 g/dl (14.0-18.0); Mean Corpuscular Hemoglobin 27.9 pg (25.0-34.0); Mean Corpuscular Hgb Conc 33.3 g/dL (32.0-36.0); Mean Corpuscular Volume 83.8 fL (80.0-100.0); Mean Platelet Volume 10.7 fL (9.4-12.4); Platelet Count 246 K/uL (130-400); RDW Coefficient of Variation 13.2 % (11.5-14.5); RDW Standard Deviation 40.1 fL (36.4-46.3); Red Blood Count 4.69 M/uL (4.63-6.08); White Blood Count 7.64 K/ul (4.8-10.8)
[2022-04-01 08:54] LABS: Creatinine Clr Calc Pharmacy 106.1 ml/min; Est GFR (African American) 105.5 ml/min
[2022-04-01] MEDS ORDERED: LIDOCAINE 5% 1 PATCH TD SCH (09:00)
[2022-04-01] MEDS: ASPIRIN 81 MG ECTAB PO SCH (09:11)
[2022-04-01] MEDS: APIXABAN 5 MG TABLET PO SCH (09:11)
[2022-04-01] MEDS: PANTOprazole 40 MG TAB PO SCH (09:11)
[2022-04-01] MEDS: QUEtiapine FUMARATE 100 MG TABLET PO SCH ×2 (09:11→13:52)
[2022-04-01] MEDS: DOCUSATE SODIUM 100 MG CAP PO SCH (09:11)
--- NOTE | 2022-04-01 15:11 | Discharge Summary ---
Date of Service April 01, 2022 Admission HPI Per Admitting Provider 61 year old male w/ schizoaffective disorder, hypothyroidism, GERD, HLD who presents from [facility] (psych facility) w/ chest pain intermittent since yesterday morning at 9am, onset was at rest. He was admitted from 02/13/22- 02/15/22 for atypical chest pain. Intermittent, can last for a couple. Laying down helps the pain. Not exertional. Improved w/ taking deep breaths as he statss sometimes has similar from anxiety. No shortness of breath. Regarding his right rib fractures, he states he fell a month ago. He had hematuria red tint 3 wks ago, none recently. Dysuria couple weeks ago, resolved. Currently 6-7 left c hest pain sharp, stabbing. Update: improved after IV tylenol. No associated diaphoresis, arm radiation, jaw pain, nausea, headache. Denies hx NC or stroke. Patient is a very poor historian. en route, received ativan 2mg and zyprexa 10mg for agitation. ED course: CTA chest showing healing 3rd-9th rib fractures and possible RLL posterior basal segmental/subsegmental PE w/ subsegmental atelectasis vs small pulmonary infarct. He was started on therapeutic SQ Lovenox. No leukocytosis. Hb 11.9, down from 13.2 (baseline) on 02/15/22. D-Dimer 1390. INR 1.0. BMP wnl. Hstrop elev to 20.5. UA trace blood. Covid neg. ecg w/ LBBB that is not new. qtc 462. Principal Diagnosis pulmonary embolism Discharge Exam The patient is awake, alert and oriented 3, well developed and well nourished, normocephalic and atraumatic, lying in bed and in no acute distress. HEENT--PERRL, EOMI, mucous membranes and oropharynx mildly dry Neck--supple. No JVD. No bruits. Thyroid normal, trachea midline, no adenopathy. Heart--normal S1 and S2. No murmurs, rubs or gallops. Lungs--clear bilaterally, no respiratory distress, no accessory muscle use. Abdomen--normal bowel sounds and soft. Mild epigastric and left sided abdominal pain Extremities--no cyanosis or clubbing. No edema. Dermatologic--normal skin turgor, normal color, no abnormal lymph nodes, no rash. Neurologic--cranial nerves II through XII grossly intact. Rheumatologic--normal range of motion. Psychiatric--normal affect. Discharge Data Allergies Allergy/AdvReac Type Severity Reaction Status Date / Time oxazepam Allergy Unknown Unknown Unverified 03/29/22 02:09 adhesive tape Allergy Unknown Unverified 03/29/22 02:09 bee venom protein (honey bee) Allergy Unknown Unverified 03/29/22 02:09 chlorpromazine Allergy Unknown Unverified 03/29/22 02:09 [From Thorazine] latex Allergy Unknown Unverified 03/29/22 02:09 propranolol [From Inderal LA] Allergy Unknown Unverified 03/29/22 02:09 Consultations 03/28/22 20:39 ED Decision to Admit Stat 03/28/22 23:28 Consult Cardiology Routine 03/30/22 03:49 Consult Behavioral Health Liaison Routine Ordered Studies 03/28/22 17:31 CT angio chest PE protocol Stat 03/28/22 20:38 US venous doppler LE BI Urgent 03/31/22 11:20 US venous duplex arm [US venous doppler UE LT] Routine Hospital Course (1) Pulmonary embolism and infarction: 61 year old male w/ schizoaffective disorder, hypothyroidism, GERD, HLD who presents from [facility] w/ chest pain since yesterday 9 AM. He had similar presentation last admission to [facility] 02/13/22-02/15/22. - CTA PE w/ possible RLL posterior basal segmental/subsegmental PE w/ subsegmental atelectasis vs small pulmonary infarct. - PESI 73 points. Class II, Low Risk: 1.7-3.5% 30-day mortality in this group. - Now transitioned to PO Eliquis 10mg BID for 7 days and then later 5mg BID - venous duplex BLE negative for DVT - No evidence of right heart strain on ECHO (2) Left-sided chest pain: - reproducible, similar to 02/13/22 [facility] admission's presentation - now resolved - repeat trop - echo as above. would check for pericarditis - more likely msk chest wall pain. location is not at rib fractures or right sided PE/pulm infarct. - prn IV tylenol for now (3) Schizoaffective disorder: w/ severe intermittent agitation at baseline. - Resumed home meds (4) Multiple rib fractures involving four or more ribs: - noted on CTA chest. no flail chest on exam. pain is minimal. monitor (5) Hyperlipidemia: - continue home statin (6) GERD (gastroesophageal reflux disease): - continue home PPI (7) Hypothyroid: - continue home levothyroxine (8) Elevated troponin: - repeat in AM (9) Hematoma: left upper extremity hematoma probably caused by IV access NO evidence of DVT on duplex Plan D/C to [facility] when accepted Diet, fluids: regular diet. no fluids anticoag: therapeutic lovenox code: full, confirmed w/ patient dispo: med tele. Total Time Total Time Spent Total Time Spent (In Minutes): 35 Discharge Plan Discharge Items Patient Disposition: Transfer Behavioral Health Fac Reason For Visit: CHEST PAIN Discharge Diagnosis: Pulmonary Embolism Activity: Resume your previous activity Non-emergency contact: Primary Care Provider and Psychiatrist Call non-emergency contact if: you have any medication questions Follow-up/Referrals: Joya Osman [Primary Care Provider] - Diet: Regular Addtl Attending Provider Instructions: please make appointment to follow up with your regular pcp Pending Studies at Discharge: No Stand-Alone Forms: My [facility] Medications and DC Order Prescriptions: New Eliquis 5 mg Tablet 10 mg PO BID 4 Days Qty: 16 0RF Eliquis 5 mg tablet 5 mg PO BID Qty: 90 0RF Continued multivitamin Tablet 1 tab PO QAM Rx Instructions: for supplement omega-3 fatty acids 1,000 mg Capsule 1,000 mg PO DAILY Rx Instructions: for high cholesterol atorvastatin 10 mg Tablet 10 mg PO HS levothyroxine 25 mcg Tablet 25 mcg PO DAILY@0700 Rx Instructions: daily @ 0700 along with 100 mcg tablet for Hypothyroid levothyroxine 100 mcg Tablet 100 mcg PO DAILY@0700 Rx Instructions: Daily @ 0700 along with 25 mcg tablet for Hypothyroid pantoprazole 40 mg Tablet,Delayed Release (Dr/Ec) 40 mg PO QAM Rx Instructions: for GERD docusate sodium 100 mg Capsule 200 mg PO BID Rx Instructions: for constipation aspirin 81 mg Tablet,Chewable 81 mg PO QAM alum-mag hydroxide-simeth 200-200-20 mg/5 mL Suspension 30 ml PO QID PRN (Reason: Gastric Reflux) Rx Instructions: fof Gastric distress epinephrine [EpiPen] 0.3 mg/0.3 mL Auto-Injector 0.3 mg IM UD PRN (Reason: Allergic Reaction) Rx Instructions: for Severe Allergic reaction polyethylene glycol 3350 17 gram/dose Powder 17 g PO 3XWK Rx Instructions: on Friday, Friday and Friday for constipation fluticasone propionate 50 mcg/actuation [place],Suspension 1 spray INTRANASAL BID Rx Instructions: for stuffy nose Hemorrhoidal Cream 0.25-1 % Cream 1 applic MO TID PRN (Reason: Hemorrhoids) cholecalciferol (vitamin D3) 25 mcg (1,000 unit) Tablet 25 mcg PO QAM Rx Instructions: supplement benzocaine-menthol 15-3.6 mg Lozenge 2 ambrocio mucous membrane Q2H PRN (Reason: Sore Throat) guaifenesin [Mucinex] 600 mg Tablet Extended Release 12hr 600 mg PO BID Rx Instructions: for Paroxysmal Nocturnal Dyspnea (PND) sennosides [senna] 8.6 mg Tablet 8.6 mg PO HS donepezil 5 mg Tablet 10 mg PO HS lidocaine 4 % Adhesive Patch,Medicated 1 patch TOPICAL .REMOVE HS PRN (Reason: ..) quetiapine [Seroquel] 200 mg Tablet 400 mg PO HS Rx Instructions: Give 2 tabs, start @ 03/28/22 @ 2100 quetiapine [Seroquel] 100 mg Tablet 100 mg PO BID Rx Instructions: give @ 0900 & 1300 ascorbic acid (vitamin C) [Vitamin C] 500 mg Tablet 500 mg PO DAILY gabapentin 300 mg Capsule 300 mg PO TID Rx Instructions: Start 03/28/22 @ 2100 - 04/26/22 montelukast 10 mg Tablet 10 mg PO DAILY acetaminophen [Tylenol] 325 mg Tablet 650 mg PO Q4 PRN (Reason: Pain) lidocaine 4 % Adhesive Patch,Medicated 1 patch TOPICAL DAILY PRN (Reason: Pain) Rx Instructions: MAX 3 PATCHES PER APPLICATION, REMOVE HS calcium carbonate [Antacid (calcium carbonate)] 200 mg calcium (500 mg) [place],Chewable 0 mg PO DIRECTED Rx Instructions: AFTER MEALS & HS PRN quetiapine [Seroquel] 50 mg Tablet 50 mg PO .Q30MIN PRN (Reason: .SEVERE AGGITATION) artificial tears with lanolin Ointment 1 applic OPHTHALMIC (EYE) Q4 PRN (Reason: .EYE DISCOMFORT) Discharge Orders: Discharge Order (Routine); Ordered 04/01/22 Ordered By: Alfred Gerber Admission Data Admit Date/Time: 03/28/22 22:27 Attending Provider: Alfred Gerber Admit Provider: Yamil Arguello Primary Care Provider: Joya Osman Other Providers: Sean Olivo ; Sky Silvestre Coding Level of Care Code D/C DAY MANAGEMENT >30 MINS Diagnoses Pulmonary embolism and infarction I26.99 Left-sided chest pain R07.9 Schizoaffective disorder F25.9 Multiple rib fractures involving four or more ribs S22.49XA Hyperlipidemia E78.5 GERD (gastroesophageal reflux disease) K21.9 Hypothyroid E03.9 Elevated troponin R77.8 Hematoma T14.8XXA Time Spent (min) 35
== END 2022-04-01 17:10 | DRG 176 ==
LOC: ED 15:32 → EDINP 22:27 → SUATTDRO 22:27 → 2W 03-29 01:17
DX: R79.89 Other specified abnormal findings of blood chemistry; Z79.82 Long term (current) use of aspirin; S22.41XD Multiple fractures of ribs, right side, subsequent encounter for fracture with routine healing; K21.9 Gastro-esophageal reflux disease without esophagitis; Z87.891 Personal history of nicotine dependence; Z86.16 Personal history of COVID-19; R45.1 Restlessness and agitation; Z91.040 Latex allergy status; E03.9 Hypothyroidism, unspecified; J98.11 Atelectasis; Y92.89 Other specified places as the place of occurrence of the external cause; F25.9 Schizoaffective disorder, unspecified; E78.5 Hyperlipidemia, unspecified; X58.XXXD Exposure to other specified factors, subsequent encounter; I26.93 Single subsegmental thrombotic pulmonary embolism without acute cor pulmonale